=== PATIENT | male | born 1980 | race Caucasian/White ===

== ENCOUNTER 2025-03-10 19:33 | Emergency (ER) | payer SELFPAY ==
--- NOTE | ~2025-03-10 | XR_ITS ---
XR chest 1V portable Ordering provider: Colt Prince PA-C History: 44 years Male with . cough . Comparison: None. FINDINGS: MEDIASTINUM: The cardiac silhouette is not enlarged. Slightly prominent yisel. LUNGS: No infiltrates, effusions or pneumothorax. OTHER: No free air under the diaphragm. IMPRESSION: No acute cardiopulmonary pathology. Reviewed, dictated and finalized at location A.
[2025-03-10 20:04] VITALS: BP 138/77; PULSE 89; RESP 15; TEMP 36.9; O2SAT 99
--- NOTE | 2025-03-10 21:02 | ED_ITS ---
HPI - URI/Sore Throat General Chief Complaint: Upper Respiratory Infection Stated Complaint: sore throat, cough, fever Time Seen by Provider: 03/10/25 21:01 Source: patient Mode of arrival: ambulatory Limitations: no limitations History of Present Illness HPI Narrative: This is a 44-year-old male who presents to the ED for chief complaint of upper respiratory infection symptoms for the past 5 days. Patient reports symptoms of sore throat, progressing to a cough with chills. Also endorses congestion, headaches and chest soreness with cough. Patient states that he has concern for possible pneumonia due to his coughing fits. Related Data Allergies Allergy/AdvReac Type Severity Reaction Status Date / Time Penicillins Allergy Abdominal Verified 03/10/25 19:36 Pain tramadol Allergy GI upset Verified 03/10/25 19:36 Review of Systems Review of Systems: All systems as dictated in HPI Exam Narrative: GENERAL: Well-appearing, well-nourished, and in no acute distress. HEAD: Normocephalic, atraumatic. EYES: PERRLA and EOMI. ENT: Nares clear, no rhinorrhea or epistaxis. Mucous membranes moist. Oropharynx without tonsillar hypertrophy exudate or other lesions. NECK: Supple. No adenopathy or masses. CHEST: No respiratory distress. Clear to auscultation. No wheezes rales or rhonchi HEART: Regular rate and rhythm. No murmur heard. Normal peripheral pulses. ABDOMEN: Soft, nontender, nondistended, normal active bowel sounds. MSK: Normal range of motion. No edema. SKIN: Warm, dry, no rash. NEURO: Alert and oriented x4. No focal deficits. PSYCH: Normal mood and affect. Course Vital Signs Vital signs: Vital Signs Temperature 98.5 F 03/10/25 20:04 Pulse Rate 89 03/10/25 20:04 Respiratory Rate 15 03/10/25 20:04 Blood Pressure 138/77 03/10/25 20:04 Pulse Oximetry 99 03/10/25 20:04 Oxygen Delivery Room Air 03/10/25 20:04 Temperature 97.9 F 03/10/25 22:22 Pulse Rate 92 03/10/25 22:22 Respiratory Rate 20 03/10/25 22:22 Blood Pressure 147/98 H 03/10/25 22:22 Pulse Oximetry 97 03/10/25 22:22 Oxygen Delivery Room Air 03/10/25 21:20 MDM - URI/Sore Throat MDM Narrative Medical decision making narrative: This is a 44-year-old male who presents to the ED for chief complaint of cough and chest tightness. Vitals are normal. Exam is benign overall. Viral swabs are negative. Chest x-ray negative. Presentation consistent with bronchitis. Rx for Medrol Dosepak and Tessalon Perles given. Patient will be discharged in stable condition. Supportive measures discussed and return precautions given. Patient is understanding and agreeable with plan for discharge with PCP follow-up. Lab Data Labs: Lab Results 03/10/25 Range/Units 21:19 Influenza A (RT-PCR) Negative (Negative) Influenza B (RT-PCR) Negative (Negative) RSV (RT-PCR) Negative (Negative) SARS-CoV-2 RNA (RT-PCR) Negative (Negative) Discharge Plan Discharge Clinical Impression: Upper respiratory infection, Bronchitis Patient Disposition: Home Condition: Stable Instructions: Antibiotic Form, Acute Bronchitis (ED) Additional Instructions: Exam and imaging today are reassuring. This is most likely bronchitis and should self resolve over the next couple of weeks. Use steroids as prescribed as well as cough medicine. Follow-up with PCP on this issue. If you have any new or worsening symptoms please return to the ER for further evaluation. Patient Language: Mohawk Prescriptions: New methylprednisolone [Medrol (Lenin)] 4 mg tablets,dose pack 4 mg PO DAILY Qty: 21 0RF benzonatate 100 mg capsule 100 mg PO BID PRN (Reason: cough) Qty: 30 0RF Follow-up/Referrals: PHYSICIAN,INSURANCE MANAGER [Primary Care Provider] - Time of Disposition: 22:03
--- OUTSIDE RECORDS SUMMARY | 2025-03-10 21:19 | XMS_ITS | Clinical Summary ---
Author Organization [facility] Address [address] [place] [address] Phone Care Team Providers Care Collar Turner Name Role Phone Unavailable Primary Care Provider Unavailabl e Allergies Active Allergy Reactions Criticality Noted Date Comments Penicillins Nausea and Vomiting,Dizziness Low 08/07 Tramadol Headache Low 03/27/2023 Medications metFORMIN (GLUCOPHAGE) 500 mg tabletIndicatio ns:Type 2 diabetes mellitus with hyperglycemia, without long-term current use of insulin ([facility]) Take 2 Tablets (1,000 mg) by mouth 2 times daily with meals. 360 Tablet 1 4 Active hydrocortisone (HYTONE) 2.5 % LotionIndicatio ns:application site rash Apply to affected area 2 times daily. 236 mL 2 02/16/2024 4:14 PM CDT 4 Active triamcinolone acetonide (KENALOG) 0.1 % Cream Apply to affected area 2 times daily. 160 Gram 4 Active dextromethorpha n-guaiFENesin (ROBITUSSIN DM) 10-100 mg/5 mL solution Take 10 mL by mouth every 4 hours as needed for Congestion or Cough. 118 mL 4 Active albuterol sulfate HFA 90 mcg/actuation aerosol inhaler Take 2 Puffs by inhalation every 6 hours as needed for Wheezing or Shortness of Breath. 8.5 Gram 4 Active Active Problems Problem Noted Date Diagnosed Date Prurigo nodularis 01/30/2024 HLA-B27 associated acute anterior uveitis 2023 HTN (hypertension), benign 08/12/2022 Type 2 diabetes mellitus wit h periodontal disease, without long-term current use of insulin 08/11/2022 Allergic rhinitis 05/21/2014 GERD (gastroesophageal reflux disease) 2 Resolved Problems Problem Noted Date Diagnosed Date Resolved Date Cellulitis 01/27/2024 01/31/2024 Lactic acidosis 01/27/2024 01/30/2024 Hyponatremia 01/27/2024 01/30/2024 Periapical abscess 08/11/2022 Facial cellulitis 08/11/2022 01/31/2024 2019 novel coronavirus disease (COVID-19) 08/11/2022 01/31/2024 Conjunctivitis 05/21/2014 01/31/2024 Sinusitis 05/21/2014 01/31/2024 Elevated liver function tests 06/21/2012 01/30/2024 Encounters Date Type Department Care Team Description 02/04/2025 External Device Data [facility] ABSTRACTION Provider, Abstract 02/04/2025 External Device Data [facility] Provider, Abstract 01/29/2025 External Device Data [facility] Provider, Abstract 01/28/2025 External Device Data [facility] Provider, Abstract 01/28/2025 External Device Data [facility] Provider, Abstract 01/21/2025 External Device Data [facility] Provider, Abstract 01/17/2025 Telephone [facility] [address] [address] Frandy Jacobo, Appointment Needed 12/24/2024 External Device Data [facility]STRACTION Provider, Abstract 12/19/2024 External Device Data [facility] Provider, Abstract 12/10/2024 External Device Data [facility]STRACTION Provider, Abstract from Last 3 Months Family History Medical History Relation Name Comments No Known Problems Brother 1 No Known Problems Brother 2 Hypertension Father Unknown Father Diabetes Mother Hypertension Mother Stroke Mother Unknown Mother Relation Name Status Comments Brother 1 Alive Brother 2 Alive Father Alive Mother Alive Social History Tobacco Use Types Packs/Day Years Used Date Smoking Tobacco: Former Cigarettes 1 3.1 S tarted: 01/26/2022 Cigars Tobacco Cessation:Counseling Given: Not Answered Alcohol Use Standard Drinks/Week Comments Not Currently 0 (1 standard drink = 0.6 oz pure alcohol) quit ETOH 1 yr ago. drank beer & anuradha mercado Financial Resource Strain Answer Date R ecorded How hard is it for you to pa y for the very basics like food, housing, medical care, and heating? Hard 10/29/2023 Food Insecurity Answer Date Recorded In the past 12 months, have you worried that your food would run out before you had money to buy more? Sometimes true 2022 In the past 12 months, did y ou run out of food and didn't have money to buy more? Often true 10/29/2023 Transportation Needs Answer Date Record ed In the past 12 months, has l ack of transportation kept you from medical appointments or from getting medications? Yes 01/2023 In the past 12 months, has l ack of transportation kept you from meetings, work, or from getting things needed for daily living? Yes 10/29/2023 Housing Stability Answer Date Recorded In the last 12 months, was t here a time when you were not able to pay the mortgage or rent on time? Yes 10/29/2023 Number of Times Moved in the Last Year Not on fi le 10/29/2023 Unstable Housing in the Last Year Not on file 10/29/2023 Feeling Safe Answer Date Recorded Are you in a relationship wi th someone who hurts you emotionally and/or physically? No 07/14/2024 Food Insecurity Answer Date Recorded Social/Environmental Concerns No concerns Transportation Needs Answer Date Record ed Social/Environmental Concerns No concerns Housing Stability Answer Date Recorded Social/Environmental Concerns No concerns Utility Needs Answer Date Recorded Social/Environmental Concerns No concerns Sex and Gender Information Value Date Recorded Sex Assigned at Not on file Legal Sex Male 6:08 AM INTERLACER Gender Identity Not on file Sexual Orientation Not on file Occupation Industry Job Start Date Job End Date Not on file Not on file Not on file Not on file Last Filed Vital Signs Vital Sign Reading Time Taken Comments Blood Pressure 133/71 08/18/2024 1:33 PM CDT Pulse 77 08/18/2024 1:33 PM CDT Temperature 36 C (96.8 F) 08/18/2024 11:31 AM CDT Respiratory Rate 16 08/18/2024 1:33 PM CDT Oxygen Saturation 99% 08/18/2024 1:33 PM CDT Inhaled Oxygen Concentration - - Weight 93.9 kg (207 lb) 08/18/2024 11:31 AM CDT Height 180.3 cm (5' 11 ) 08/18/2024 11:31 AM CDT Body Mass Index 28.87 08/18/2024 11:31 AM CDT Plan of Treatment Health Maintenance Due Date Last Done Comments DIABETES ANNUAL FOOT EXAM 2000 DIABETES MICROALBUMIN ANNUAL SCREEN 2000 LDL CHOLESTEROL ANNUAL 2000 DTAP/TDAP/TD VACCINES (1 - Tdap) 2001 HEPATITIS B VACCINES (1 of 3 - 19+ 3-dose series) 2001 Preventative Visit-Managed Medicaid 2001 DIABETES: A1C (Auto Order) 04/28/202401/26, 09/13/2023, 10/21/2022 INFLUENZA VACCINE (#1) 2024 DIABETES HBA1C Q 6 MONTHS 07/29/20242023, 09/13/2023, 10/21/2022 DIABETES ANNUAL RETINAL EXAM 02/14/2025, 08/09/2023, 04/20/2023 HPV VACCINES Aged Out No longer eligi ble based on patient's age to complete this topic Procedures Procedure Name Priority Date/Time Associated Diagnosis Comments HEMOGLOBIN A1C Stat 01/27/2024 11:09 AM INTERLACER from Last 3 Months or Most Recently Relevant to Health Maintenance Results * (ABNORMAL) HEMOGLOBIN A1C (01/27/2024 11:09 AM INTERLACER) HEMOGLOBIN A1C 10.4(H) <=5.6 % 01/27/2024 11:53 AM [facility] [employer] [facility] EST. AVG GLUCOSE, A1C 252 mg/dL 01/27/2024 11:53 AM [facility] Blood Collection / Unknown 01/27/2024 11:09 AM INTERLACER 01/27/2024 11:34 AM INTERLACER Narrative [facility] - 01/27/2024 11:53 AM INTERLACER HGB A1C INTERPRETATION NORMAL: <5.7% PRE-DIABETES: 5.7 - 6.4% DIABETES: 6.5% OR GREATER [facility] CHEMISTRY ORDERABLES Final Resul t [facility] CLIA # [id number] [address] [place] [id number] from Last 3 Months or Most Recently Relevant to Health Maintenance Insurance [employer] (INTERNAL) [employer] COVID NO INSURANCE (INTERNAL) Member Subscriber Plan / Payer (Ef fective for All Dates) Name:Bassam Parker Member ID:Not on file Relation to Subscriber:Self Name:Bassam Parker Subscriber ID:Not on file Payer ID:Not on file Group ID:Not on file Type:RX [facility] [employer] Address: [address] [facility] MEDICAID Advance Directives For more information, please contact: [phone] * Full Code (Latest Code Status on File) Date Activated Date Inactivated Comments 01/27/2024 2:32 PM 01/30/2024 2:19 PM * Full Code Date Activated Date Inactivated Comments 08/11/2022 4:26 PM 08/13/2022 9:06 PM
--- OUTSIDE RECORDS SUMMARY | 2025-03-10 21:19 | XMS_ITS | Encounter Summary ---
Author Organization [facility] Address [address] [facility] [place] [address] Care Team Providers Care Hose Inspector And Patcher Name Role Phone Unavailable Primary Care Provider Unavailabl e Reason for Visit * Reason Onset Date Comments MEDICATION REFILL 11/02/2023 Eye Problem 11/02/2023 Encounter Details Date Type Department Care Team (Late st Contact Info) Description 11/02/2023 Refill [facility] - Ophthalmology [address] [place] [phone] Grayson Wadsworth MD [address] [place] [address] [place] [address] MEDICATION REFILL; Eye Problem Social History Tobacco Use Types Packs/Day Years Used Date Smoking Tobacco: Former Smokeless Tobacco: Never Alcohol Use Standard Drinks/Week Comments No 0 (1 standard drink = 0.6 oz pur e alcohol) AUDIT-C Answer Date Recorded Q1: How often do you have a drink containing alc ohol? Never 10/29/2022 Average Number of Drinks Not on file 022 Q3: How often do you have si x or more drinks on one occasion? Never 10/29/2022 Sex and Gender Information Value Date Recorded Sex Assigned at Male 10/29/2022 9:20 AM MANAGER UNIT Legal Sex Male 5:32 AM MANAGER UNIT Gender Identity Male 10/29/2022 9:20 AM MANAGER UNIT Sexual Orientation Not on file documented as of this encounter Miscellaneous Notes * Telephone Encounter - Darshana Cowan - 11/02/2023 11:44 AM CST This patient called and said he had the pink top drops and needed the other one. He said it is for his pressure.(?) GER UNIT documented in this encounter Plan of Treatment Not on file documented as of this encounter Visit Diagnoses Diagnosis Panuveitis of right eye Panuveitis documented in this encounter
--- OUTSIDE RECORDS SUMMARY | 2025-03-10 21:19 | XMS_ITS | Encounter Summary ---
Author Organization [facility] Address [address] [facility] [place] [address] Care Team Providers Care Prepress Stripper Name Role Phone Miladis Eubanks MD Primary Care Provider Encounter Details Date Type Department Care Team (Late st Contact Info) Description 10/29/2022 Ophth Exam [facility] [address] [place] [phone] Jocelyn Parker MD [address] [place] [phone] Social History Tobacco Use Types Packs/Day Years [...] Sex Assigned at Male 10/29/2022 9:20 AM PORTABLE MACHINE CUTTER Legal Sex Male 5:32 AM PORTABLE MACHINE CUTTER Gender Identity Male 10/29/2022 9:20 AM PORTABLE MACHINE CUTTER Sexual Orientation Not on file documented as of this encounter Functional Status documented as of this encounter Plan of Treatment Not on file documented as of this encounter Visit Diagnoses Not on filedocumented in this encounter Care Teams Prepress Stripper Relationship Specialty Start Date End Date Miladis Eubanks MD [address] [facility] [place] [address] PCP - General 11/01/22 11/01/22 documented as of this encounter
--- OUTSIDE RECORDS SUMMARY | 2025-03-10 21:19 | XMS_ITS | Clinical Summary ---
Author Organization [facility] Address [address] [place] [address] Care Team Providers Care Diamond Sorter Name Role Phone Unavailable Primary Care Provider Unavailabl e Source Comments [facility],non-owned Affiliates and Associated Physician Practices is amultiple site organization consisting of ambulatory clinics and hospital sitesin [place], [place] and [place]. This disclosure is being madepursuant to the Care Everywhere program and may not contain all information available regarding this patient. Last updated 18.[facility] [place] Allergies Active Allergy Reactions Criticality Noted Date Comments Penicillins Dizziness 02/06/2019 Tramadol Headache Low 03/27/2023 Medications * Be aware that medications may not be up to date on this document. Alwaysverify current medications with the patient. metFORMIN (Glucophage) 500 MG tablet 10/28/2023 Activ e prednisoLONE acetate (Pred Forte) 1 % ophthalmic suspension Instill 1 (one) drop into right eye 4 times daily 4 times a day for 1 week then 3 times a day for 1 week then 2 times a day for 1 week then once a day for 1 week then every other day for 1 week 15 mL 2 11/06/2023 Active clindamycin (Cleocin) 300 MG capsule TAKE 1 CAPSULE BY MOUTH EVERY 6 HOURS UNTIL ALL TAKEN 11/16/2023 Active hydrocortisone (Hytone) 2.5 % lotion Apply to affected area 2 times daily 02/14/2024 Active hydrOXYzine HCl (Atarax) 25 MG tablet 12/13/2023 Active ibuprofen (Motrin) 800 MG tablet TAKE 1 TABLET BY MOUTH EVERY 6-8 HOURS NEEDED 11/16/2023 Active metFORMIN (Glucophage) 500 MG tablet Take 2 (two) tablets by mouth 01/31/2024 Active sulfamethoxazol e-trimethoprim (Bactrim DS; Septra DS) 800-160 MG tablet Take 1 (one) tablet by mouth 2 times daily FOR 10 DAYS 12/13/2023 Active Active Problems Problem Noted Date Diagnosed Date Elevated BP without diagnosis of hypertension Type 2 diabetes mellitus wit h periodontal disease, without long-term current use of insulin 08/11/2022 Periapical abscess 08/11/2022 Facial cellulitis 08/11/2022 2019 novel coronavirus disease (COVID-19) 2021 Allergic rhinitis 05/21/2014 Increased glucose level 06/21/2012 GERD (gastroesophageal reflux disease) 2 Elevated liver function tests 06/21/2012 Resolved Problems Problem Noted Date Diagnosed Date Resolved Date Sinusitis 05/21/2014 12/27/2022 Conjunctivitis 05/21/2014 12/13/2022 Social History Tobacco Use Types Packs/Day Years [...] Sex Assigned at Male 10/29/2022 9:20 AM ANALYZER SALES Legal Sex Male 5:32 AM ANALYZER SALES Gender Identity Male 10/29/2022 9:20 AM ANALYZER SALES Sexual Orientation Not on file Last Filed Vital Signs Vital Sign Reading Time Taken Comments Blood Pressure 140/96 10/29/2022 8:38 AM ANALYZER SALES Pulse 78 10/29/2022 8:38 AM ANALYZER SALES Temperature 36.2 C (97.1 F) 10/29/2022 8:38 AM ANALYZER SALES Respiratory Rate 16 10/29/2022 8:38 AM ANALYZER SALES Oxygen Saturation 97% 10/29/2022 8:38 AM ANALYZER SALES Inhaled Oxygen Concentration - - Weight 94.3 kg (208 lb) 10/29/2022 8:38 AM ANALYZER SALES Height 180.3 cm (5' 11 ) 10/29/2022 8:38 AM ANALYZER SALES Body Mass Index 29.01 10/29/2022 8:38 AM ANALYZER SALES Plan of Treatment Health Maintenance Due Date Last Done Comments HEPATITIS C SCREENING 03/08/2000 DTAP/TDAP/TD VACCINES (1 - Tdap) 2001 HEPATITIS B VACCINE (1 of 3 - 19+ 3-dose series) 2001 PNEUMOCOCCAL VACCINE (1 of 2 - PCV) 2001 DIABETES-STATIN 2022 DIABETES-FOOT EXAM WITH MONOFILAMENT 11/29/2022 COVID-19 VACCINE (1 - 2023- season) 2024 DIABETES-HGB A1C 07/29/2024 01/27/2024, , 10/21/2022 DEPRESSION SCREENING 11/27/2024 DIABETES - URINE PROTEIN SCREENING 11/27/2024 DIABETES-SERUM CREATININE 01/29/20252023, 01/30/2024, 01/30/2024, Additional history exists INFLUENZA VACCINE (Season Ended) 2025 DIABETES RETINOPATHY SCREENING 02/14/2026 02/15/2024, 11/06/2023, 08/09/2023, Additional history exists ZOSTER VACCINE (1 of 2) 2032 HIV SCREENING Completed 02/18/2019 HIB VACCINE Aged Out No longer eligi ble based on patient's age to complete this topic HPV VACCINE Aged Out No longer eligi ble based on patient's age to complete this topic MENINGOCOCCAL (Group B) VACCINE SHARED DECISION-MAKING Aged Out No longer eligible based on patient's age to complete this topic MENINGOCOCCAL GROUPS A/C/Y/W VACCINE Aged Out No longer eligible based on patient's age to complete this topic Procedures Procedure Name Priority Date/Time Associated Diagnosis Comments COMPREHENSIVE METABOLIC PANEL STAT 10/28/2022 7:00 PM ANALYZER SALES HIV-1 HIV-2 ANTIGEN/ANTIBODY STAT 02/18/2019 10:30 PM CDT from Last 3 Months or Most Recently Relevant to Health Maintenance Results * (ABNORMAL) COMPREHENSIVE METABOLIC PANEL (10/28/2022 7:00 PM ANALYZER SALES) Glucose 224(H) 70 - 105 mg/dL 10/28/2022 7:25 PM [facility] Sodium 138 136 - 145 mmol/L 10/28/2022 7:25 PM [facility] Potassium 3.2(L) 3.5 - 5.1 mmol/L 10/28/2022 7:25 PM [facility] Chloride 104 98 - 107 mmol/L 10/28/2022 7:25 PM [facility] CO2 22(L) 23 - 31 mmol/L 10/28/2022 7:25 PM [facility] Calcium 9.0 8.4 - 10.4 mg/dL 10/28/2022 7:25 PM [facility] Anion Gap 12 8 - 18 mmol/L 10/28/2022 7:25 PM [facility] BUN 14 8.9 - 20.6 mg/dL 10/28/2022 7:25 PM [facility] Creatinine 0.82 0.72 - 1.25 mg/dL 10/28/2022 7:25 PM [facility] Alkaline Phosphatase 106 40 - 150 U/L 10/28/2022 7:25 PM [facility] ALT 25 0 - 61 U/L 10/28/2022 7:25 PM [facility] AST 20 5 - 34 U/L 10/28/2022 7:25 PM [facility] Protein Total 7.3 6.4 - 8.3 gm/dL 10/28/2022 7:25 PM [facility] Albumin 4.0 3.5 - 5.2 gm/dL 10/28/2022 7:25 PM [facility] Bilirubin Total 0.6 0.2 - 1.2 mg/dL 10/28/2022 7:25 PM [facility] eGFR by CKD-EPI >90 >=90 mL/min/1.7 3 m2 10/28/2022 7:25 PM [facility] Blood BLOOD SPECIMEN / Unknown Venipuncture / Unknown 10/28/2022 7:00 PM ANALYZER SALES 10/28/2022 7:05 PM [facility] us Dami Enamorado RING MAKER-SWEATER OPERATOR LAB - CHEMISTRY ORDERABL ES Final Result [facility] [address] [id number] * HIV-1 HIV-2 ANTIGEN/ANTIBODY (02/18/2019 10:30 PM CDT) HIV Antigen/Antibod y 1 & 2 Non-reacti ve Non-react nasra 02/18/2019 11:23 PM CDT [facility] Comment: Neither HIV-1 p24 Antigen nor HIV-1/HIV-2 Antibodies are detected. Blood BLOOD SPECIMEN / Unknown Venipuncture / Unknown 02/18/2019 10:30 PM CDT 02/18/2019 10:41 PM CDT us Kyle Mckay MD LAB - HEMATOLOGY ORDERABLES Henrietta gonzales Result [facility] [address] [place] [address] from Last 3 Months or Most Recently Relevant to Health Maintenance Insurance [employer] Address: [address] [address] [place] [address] [facility] [employer] Address: [address] [place] [address] [place] [address]
--- OUTSIDE RECORDS SUMMARY | 2025-03-10 21:19 | XMS_ITS | Continuity of Care Document ---
Author Organization [facility] Address [address] [place] [address] Phone Care Team Providers Care Mail Service Coordinator Name Role Phone Raysa Graham MD Unavailable Unavailable Allergies, Adverse Reactions, Alerts Substance Reaction Status Criticality aspirin dizziness Active No Information PENICILLIN upset stomach Active No Information Medications Medication Instructions Dosage Effective Dates (start - stop) Status Comments Janumet 50 mg-500 mg tablet take 1 tablet by oral route 2 times every day with meals 1.00 tablet - Active citalopram 20 mg tablet take 1 tablet by oral route every day 20 MG - Active FOR MOOD buspirone 10 mg tablet take 1 tablet (10MG) by oral route 2 times every day as needed for anxiety - Active omeprazole 40 mg capsule,delayed release take 1 capsule by oral route every day before a meal 40 MG - Active cyclobenzaprine 10 mg tablet take 1 tablet by oral route 2 times every day NEEDED FOR BACK PAIN - Active Lantus Solostar 100 unit/mL (3 mL) Sub-Q Insulin Pen inject 10 units by subcutaneous route once daily - Active FOR BLOOD SUGAR Lancets,Thin check blood sugar 4 times daily - Active needle (disp) inject lantus solostar daily - Active PLEASE GIVE APPROPRIATE NEEDLE FOR LANTUS SOLOSTAR- any brand/style is fine Lamisil 1 % Topical Cream apply by topical route twice daily to affected areas - Active Lidoderm 5 % (700 mg/patch) Adhesive Patch apply 3 patches by transdermal route every day (May wear up to 12hours.) - Active triamcinolone acetonide 0.1 % Topical Ointment apply by topical route 2 times every day a thin layer to the affected area(s) 0.00 - Active 1-lb jar Procedures Procedure Date OFFICE/OUTPATIENT VISIT, EST Immun admin-adult or WO counseling - fir st vaccine/toxoid HEPATITIS A VACCINE, ADULT DOSAGE, FOR I NTRAMUSCULAR USE Hepatitis B vaccine, adolescent, (2 dose schedule), for intramuscular use Pneumococcal polysaccharide vaccine, 23- valent (Pneumo-Vax 23) to age 2+ COLLECTION OF VENOUS BLOOD BY VENIPUNCTU RE OFFICE/OUTPATIENT VISIT, NEW Extraction erupted tooth or exposed root Periapical first film Limit oral eval problem focused 013 Advance Directives Directive Yes / No Effective Date File Name No Information Encounters Encounter Description Practice Location Reason(s) For Visit Diagnoses Date Provider Providers Copied on Encounter [facility], [address], [place], [place], [address] [place] [address] , tel: [phone] [facility] No Information Santos Tabares. [address] [place] [address], [address] [place] [address], . tel:[phone] Referring Provider: Raysa Graham, [address], [place], [address] . tel:[phone] OFFICE/OUTPA TIENT VISIT, EST [facility], [address], [place], [place], [address] , tel:[phone] Urgent Care hepA (chief complaint) Encounter for immunization Lambert Torres. [address], [place], [place], [address], . tel:[phone] Referring Provider: Brian Verdin, [address], [place], [address] . tel:[phone] [facility], [address], [place], [place], [address] , [place] tel: [phone] [facility] No Information 3 No Information OFFICE/OUTPA TIENT VISIT, NEW [facility], [address], [place], [place], [address] , [place] tel: [phone] [facility] diabetes (chief complaint) GERD (chief complaint) back pain (chief complaint) anxiety (chief complaint) AnxietyDM (diabetes mellitus)Back painGERD (gastroesophageal reflux disease)Need for prophylactic vaccination and inoculation against viralhepatitisNeed for prophylactic vaccination and inoculation against Streptococcus pneumoniae [pneumococcus] 3 No Information [facility], [address], [place], [place], [id number] , [place] tel: [phone] [facility] Dental examination 3 No Information Family History Family Member Type Diagnosis Age At Onset No Information Immunizations Vaccine Date Status Comments Hep A (adult) administered Source: New Im munization Record Pneumo (2 yrs or older)(PPV) administered Source: New Immunization Record Hep B (adult, 2 dose) administered Source : New Immunization Record Payers Payer name Insurance type Covered green party ID Authoriza tion(s) No Information Social History Type Description Quantity Date Captured Comments Sex Male Smoking Status No Information Chief Complaint And Reason For Visit No Information Reason For Referral Reason For Referral No Information Plan Of Treatment Date Type Action Status Goal BMP fasting. Due on 013 due Goal Urinalysis. 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 Functional Status Date Functional Assessmen t No Information Instructions Date Instruction Additional Infor mation No Information Assessments Type Assessment Date No Information Patient Care Teams Name Effective Dates (start - stop) Status Members No Information
--- OUTSIDE RECORDS SUMMARY | 2025-03-10 21:19 | XMS_ITS | Encounter Summary ---
Author Organization [facility] Address [address] [place] [address] Care Team Providers Care Student Affairs Dean Name Role Phone Frandy Jacobo Primary Care Provider + Reason for Visit * Reason Onset Date Comments FACIAL CELLULITIS, PERIAPICAL ABSCESS 08/12/2022 LEFT RN # ON DR [facility]S PAGER Encounter Details Date Type Department Care Team (Late st Contact Info) Description 08/12/2022 Telephone [facility] Admitting [address] [place] [address] [place] [address] [facility] [address] [place] [address] FACIAL CELLULITIS, PERIAPICAL ABSCESS (LEFT RN # ON DR PERRY'S PAGER) Social History Tobacco Use Types Packs/Day Years Used Date Smoking Tobacco: Former Alcohol Use Standard Drinks/Week Comments Yes 0 (1 standard drink = 0.6 oz pur e alcohol) rare Sex and Gender Information Value Date Recorded Sex Assigned at Not on file Legal Sex Male 6:08 AM INSIDE SALES LEAD Gender Identity Not on file Sexual Orientation Not on file Occupation Industry Job Start Date Job End Date Not on file Not on file Not on file Not on file COVID-19 Exposure Response Date Recorded In the last 10 days, have yo u been in contact with someone who was confirmed or suspected to have Coronavirus/COVID-19? No / Unsure 08/11/2022 5:52 AM CDT documented as of this encounter Plan of Treatment Not on file documented as of this encounter Visit Diagnoses Not on filedocumented in this encounter Additional Health Concerns Infection Onset Date Last Indicated Resolved Time COVID-19 08/07/2022 08/07/2022 08/27/2022 1:17 AM CDT R/O COVID-19 10/21/2022 10/21/2022 10/21/2022 11:5 2 AM INSIDE SALES LEAD R/O COVID-19 09/13/2023 09/13/2023 09/13/2023 3:58 PM CDT R/O Respiratory 09/13/2023 09/13/2023 09/13/2023 1 0:14 PM CDT R/O COVID-19 07/14/2024 07/14/2024 07/14/2024 3:5 9 PM CDT documented as of this encounter Care Teams Student Affairs Dean Relationship Specialty Start Date End Date Frandy Jacobo DO [address] [place] [phone] PCP - General Family Practice 01/31/24 01/21/25 documented as of this encounter
[2025-03-10 22:01] LABS: Influenza A QL RT-PCR Negative (Negative); Influenza B QL RT-PCR Negative (Negative); RSV RNA, RT-PCR Negative (Negative); SARS-CoV-2 RNA PCR Negative (Negative)
[2025-03-10 22:22] VITALS: BP 147/98; PULSE 92; RESP 20; TEMP 36.6; O2SAT 97
== END 2025-03-10 22:23 | disposition home or self-care (01) ==
PROVIDERS: Emergency Provider Physician Assistant
DX: J40 Bronchitis, not specified as acute or chronic (principal); J06.9 Acute upper respiratory infection, unspecified; Z20.822 Contact with and (suspected) exposure to COVID-19
CPT/HCPCS: 71045; 87637; 99283

== ENCOUNTER 2025-03-21 12:46 | Emergency (ER) | payer SELFPAY ==
[2025-03-21 12:48] VITALS: BP 122/84; PULSE 115; RESP 20; TEMP 36.4; O2SAT 99
--- OUTSIDE RECORDS SUMMARY | 2025-03-21 12:52 | XMS_ITS | Encounter Summary ---
Author Organization [facility] Address [address] [place] [address] Care Team Providers Care Chemical Preparer Name Role Phone Donnell Frandy Winkler Primary Care Provider + Reason for Visit * Reason Onset Date Comments FACIAL CELLULITIS, PERIAPICAL ABSCESS 08/12/2022 LEFT RN # ON DR PERRY'[facility] PAGER Encounter Details Date Type Department Care Team (Late st Contact Info) Description 08/12/2022 Telephone [facility] Admitting [address] [place] [address] [place] [address] [address] FACIAL CELLULITIS, PERIAPICAL ABSCESS (LEFT RN # ON DR PERRY'S PAGER) Social History Tobacco Use Types Packs/Day Years Used Date Smoking Tobacco: Former Alcohol Use Standard Drinks/Week Comments Yes 0 (1 standard drink = 0.6 oz pur e alcohol) rare Sex and Gender Information Value Date Recorded Sex Assigned at Not on file Legal Sex Male 6:08 AM BROADBAND ENGINEER Gender Identity Not on file Sexual Orientation [...] COVID-19 10/21/2022 10/21/2022 10/21/2022 11:5 2 AM BROADBAND ENGINEER R/O COVID-19 09/13/2023 09/13/2023 09/13/2023 3:58 PM CDT R/O Respiratory 09/13/2023 09/13/2023 09/13/2023 1 0:14 PM CDT R/O COVID-19 07/14/2024 07/14/2024 07/14/2024 3:59 PM CDT documented as of this encounter Care Teams Chemical Preparer Relationship Specialty Start Date End Date Frandy Jacobo DO [address] [place] [phone] PCP - General Family Practice 01/31/24 01/21/25 documented as of this encounter
--- OUTSIDE RECORDS SUMMARY | 2025-03-21 12:52 | XMS_ITS | Encounter Summary ---
Author Organization [facility] Address [address] [facility] [place] [address] Care Team Providers Care Pillar Worker Name Role Phone Unavailable Primary Care Provider Unavailabl e Reason for Visit * Reason Onset Date Comments MEDICATION REFILL 11/02/2023 Eye Problem 11/02/2023 Encounter Details Date Type Department Care Team (Late st Contact Info) Description 11/02/2023 Refill [facility] - Ophthalmology [address] [place] [phone] Grayson Wadsworth MD [address] [place] [address] [place] [address] MEDICATION REFILL; Eye Problem Social [...] Sex Assigned at Male 10/29/2022 9:20 AM PILATES COORDINATOR Legal Sex Male 5:32 AM PILATES COORDINATOR Gender Identity Male 10/29/2022 9:20 AM PILATES COORDINATOR Sexual Orientation Not on file documented as of this encounter Miscellaneous Notes * Telephone Encounter - Darshana Cowan - 11/02/2023 11:44 AM CST This patient called and said he had the pink top drops and needed the other one. He said it is for his pressure.(?) TES COORDINATOR documented in this encounter Plan of Treatment Not on file documented as of this encounter Visit Diagnoses Diagnosis Panuveitis of right eye Panuveitis documented in this encounter
--- OUTSIDE RECORDS SUMMARY | 2025-03-21 12:52 | XMS_ITS | Clinical Summary ---
Author Organization [facility] Address [address] [facility] [place] [address] Care Team Providers Care Dough Mixer Operator Name Role Phone Unavailable Primary Care Provider Unavailabl e Source Comments [facility],non-owned Affiliates and Associated Physician Practices is amultiple site organization consisting of ambulatory clinics and hospital sitesin [place], [place], [place] and [place]. This disclosure is being madepursuant to the Care Everywhere program and may not contain all information available regarding this patient. Last updated 18.[facility] Allergies Active Allergy Reactions Criticality Noted Date [...] Sex Assigned at Male 10/29/2022 9:20 AM FACTORY FOCUS TECHNICIAN Legal Sex Male 5:32 AM FACTORY FOCUS TECHNICIAN Gender Identity Male 10/29/2022 9:20 AM FACTORY FOCUS TECHNICIAN Sexual Orientation Not on file Last Filed Vital Signs Vital Sign Reading Time Taken Comments Blood Pressure 140/96 10/29/2022 8:38 AM FACTORY FOCUS TECHNICIAN Pulse 78 10/29/2022 8:38 AM FACTORY FOCUS TECHNICIAN Temperature 36.2 C (97.1 F) 10/29/2022 8:38 AM FACTORY FOCUS TECHNICIAN Respiratory Rate 16 10/29/2022 8:38 AM FACTORY FOCUS TECHNICIAN Oxygen Saturation 97% 10/29/2022 8:38 AM FACTORY FOCUS TECHNICIAN Inhaled Oxygen Concentration - - Weight 94.3 kg (208 lb) 10/29/2022 8:38 AM FACTORY FOCUS TECHNICIAN Height 180.3 cm (5' 11 ) 10/29/2022 8:38 AM FACTORY FOCUS TECHNICIAN Body Mass Index 29.01 10/29/2022 8:38 AM FACTORY FOCUS TECHNICIAN Plan of Treatment Health Maintenance Due Date [...] COMPREHENSIVE METABOLIC PANEL STAT 10/28/2022 7:00 PM FACTORY FOCUS TECHNICIAN HIV-1 HIV-2 ANTIGEN/ANTIBODY STAT 02/18/2019 10:30 PM CDT from Last 3 Months or Most Recently Relevant to Health Maintenance Results * (ABNORMAL) COMPREHENSIVE METABOLIC PANEL (10/28/2022 7:00 PM FACTORY FOCUS TECHNICIAN) Glucose 224(H) 70 - 105 mg/dL 10/28/2022 7:[address] [facility] Sodium 138 136 - 145 mmol/L 10/28/2022 7:[address] [facility] Potassium 3.2(L) 3.5 - 5.1 mmol/L 10/28/2022 7:[address] [facility] Chloride 104 98 - 107 mmol/L 10/28/2022 7:[address] [facility] CO2 22(L) 23 - 31 mmol/L 10/28/2022 7:[address] [facility] Calcium 9.0 8.4 - 10.4 mg/dL 10/28/2022 7:[address] [facility] Anion Gap 12 8 - 18 mmol/L 10/28/2022 7:[address] [facility] BUN 14 8.9 - 20.6 mg/dL 10/28/2022 7:[address] [facility] Creatinine 0.82 0.72 - 1.25 mg/dL 10/28/2022 7:[address] [facility] Alkaline Phosphatase 106 40 - 150 U/L 10/28/2022 7:[address] [facility] ALT 25 0 - 61 U/L 10/28/2022 7:[address] [facility] AST 20 5 - 34 U/L 10/28/2022 7:[address] [facility] Protein Total 7.3 6.4 - 8.3 gm/dL 10/28/2022 7:[address] [facility] Albumin 4.0 3.5 - 5.2 gm/dL 10/28/2022 7:[address] [facility] Bilirubin Total 0.6 0.2 - 1.2 mg/dL 10/28/2022 7:[address] [facility] eGFR by CKD-EPI >90 >=90 mL/min/1.7 3 m2 10/28/2022 7:[address] [facility] Blood BLOOD SPECIMEN / Unknown Venipuncture / Unknown 10/28/2022 7:00 PM FACTORY FOCUS TECHNICIAN 10/28/2022 7:05 PM [facility] us Dami Enamorado AIRDROP SYSTEMS TECHNICIAN-TRAFFIC SIGNAL TECHNICIAN LAB - CHEMISTRY ORDERABL ES Final Result [facility] [address] [address] * HIV-1 HIV-2 ANTIGEN/ANTIBODY (02/18/2019 10:30 PM CDT) HIV Antigen/Antibod y 1 & 2 Non-reacti ve Non-react nasra 02/18/2019 11:23 PM CDT [facility] Comment: Neither HIV-1 p24 Antigen nor HIV-1/HIV-2 Antibodies are detected. Blood BLOOD SPECIMEN / Unknown Venipuncture / Unknown 02/18/2019 10:30 PM CDT 02/18/2019 10:41 PM CDT us Kyle Mckay MD LAB - HEMATOLOGY ORDERABLES Henrietta gonzales Result [facility] [address] [place] [address] from Last 3 Months or Most Recently Relevant to Health Maintenance Insurance [facility] [place] [phone]
--- OUTSIDE RECORDS SUMMARY | 2025-03-21 12:52 | XMS_ITS | Clinical Summary ---
Author Organization [facility] Address [address] [place] [address] Phone Care Team Providers Care Chief Of Vital Statistics Name Role Phone Unavailable Primary Care Provider Unavailabl e Allergies Active Allergy Reactions Criticality Noted Date Comments Penicillins Nausea and Vomiting,Dizziness Low 08/07 Tramadol Headache Low 03/27/2023 Medications metFORMIN (GLUCOPHAGE) 500 mg tabletIndicatio ns:Type 2 diabetes mellitus with hyperglycemia, without long-term current use of insulin ([facility]) Take 2 Tablets (1,000 mg) by mouth [...] Allergic rhinitis 05/21/2014 GERD (gastroesophageal reflux disease) 07/26/201 2 Resolved Problems Problem Noted Date Diagnosed Date Resolved Date Cellulitis 01/27/2024 01/31/2024 Lactic acidosis 01/27/2024 01/30/2024 Hyponatremia 01/27/2024 01/30/2024 Periapical abscess 08/11/2022 Facial cellulitis 08/11/2022 01/31/2024 2019 novel coronavirus disease (COVID-19) 08/11/2022 01/31/2024 Conjunctivitis 05/21/2014 01/31/2024 Sinusitis 05/21/2014 01/31/2024 Elevated liver function tests 06/21/2012 01/30/2024 Encounters Date Type Department Care Team Description 03/18/2025 External Device Data STL ABSTRACTION Provider, Abstract 02/04/2025 External Device Data [facility]L ABSTRACTION Provider, Abstract 02/04/2025 External Device Data [facility] ABSTRACTION Provider, Abstract 01/29/2025 External Device Data [facility] ABSTRACTION Provider, Abstract 01/28/2025 External Device Data [facility] ABSTRACTION Provider, Abstract 01/28/2025 External Device Data [facility] ABSTRACTION Provider, Abstract 01/21/2025 External Device Data [facility] ABSTRACTION Provider, Abstract 01/17/2025 Telephone [facility] Primary Care [address] [address] Frandy Jacobo, Appointment Needed 12/24/2024 [...] on file Legal Sex Male 6:08 AM DESIGN TECHNOLOGY TEACHER Gender Identity Not on file Sexual Orientation [...] of 3 - 19+ 3-dose series) 2001 INFLUENZA VACCINE (#1) 2024 DIABETES HBA1C Q 6 MONTHS 07/29/20242023, 09/13/2023, 10/21/2022 DIABETES ANNUAL RETINAL EXAM 02/14/2025, 08/09/2023, 04/20/2023 HPV VACCINES Aged Out No longer eligi ble based on patient's age to complete this topic Procedures Procedure Name Priority Date/Time Associated Diagnosis Comments HEMOGLOBIN A1C Stat 01/27/2024 11:09 AM DESIGN TECHNOLOGY TEACHER from Last 3 Months or Most Recently Relevant to Health Maintenance Results * (ABNORMAL) HEMOGLOBIN A1C (01/27/2024 11:09 AM DESIGN TECHNOLOGY TEACHER) HEMOGLOBIN A1C 10.4(H) <=5.6 % 01/27/2024 11:53 AM [facility] [place] EST. AVG GLUCOSE, A1C 252 mg/dL 01/27/2024 11:53 AM [facility] [place] Blood Collection / Unknown 01/27/2024 11:09 AM DESIGN TECHNOLOGY TEACHER 01/27/2024 11:34 AM DESIGN TECHNOLOGY TEACHER Narrative [facility] [place] - 01/27/2024 11:53 AM DESIGN TECHNOLOGY TEACHER HGB A1C INTERPRETATION NORMAL: <5.7% PRE-DIABETES: 5.7 - 6.4% DIABETES: 6.5% OR GREATER us Grabiel Azad DO CHEMISTRY ORDERABLES Final Resul t [facility] [place] CLIA # [id number] [facility] [address] [place] [address] from Last 3 Months or Most Recently [...] Type:RX [facility] Address: [address] [facility] MEDICAID Advance Directives For more information, please contact: [phone] * Full Code (Latest Code Status on File) Date Activated Date Inactivated Comments 01/27/2024 2:32 PM 01/30/2024 2:19 PM * Full Code Date Activated Date Inactivated Comments 08/11/2022 4:26 PM 08/13/2022 9:06 PM
--- OUTSIDE RECORDS SUMMARY | 2025-03-21 12:52 | XMS_ITS | Encounter Summary ---
Author Organization [facility] Address [address] [facility] [place] [address] Care Team Providers Care Cottrell Blower Name Role Phone Miladis Eubanks MD Primary Care Provider Encounter Details Date Type Department Care Team (Late st Contact Info) Description 10/29/2022 Ophth Exam [facility] [address] [place] [phone] Jocelyn Parker MD [address] [place] [phone] Social History Tobacco Use Types Packs/Day Years [...] Sex Assigned at Male 10/29/2022 9:20 AM ROUTE DRIVER SALESPERSON Legal Sex Male 5:32 AM ROUTE DRIVER SALESPERSON Gender Identity Male 10/29/2022 9:20 AM ROUTE DRIVER SALESPERSON Sexual Orientation Not on file documented as of this encounter Functional Status documented as of this encounter Plan of Treatment Not on file documented as of this encounter Visit Diagnoses Not on filedocumented in this encounter Care Teams Cottrell Blower Relationship Specialty Start Date End Date Miladis Eubanks MD [address] [place] [facility] [address] PCP - General 11/01/22 11/01/22 documented as of this encounter
--- OUTSIDE RECORDS SUMMARY | 2025-03-21 13:48 | XMS_ITS | Encounter Summary ---
Author Organization [facility] Address [address] [facility] [place] [address] Care Team Providers Care Manager Photography Name Role Phone Miladis Eubanks MD Primary Care Provider [phone] Encounter Details Date Type Department Care Team (Late st Contact Info) Description 10/29/2022 Ophth Exam [facility] [address] [place] [phone] Jocelyn Parker MD [address] [place] [phone] Social History Tobacco Use Types Packs/Day Years [...] Sex Assigned at Male 10/29/2022 9:20 AM WAGON DRILLER Legal Sex Male 5:32 AM WAGON DRILLER Gender Identity Male 10/29/2022 9:20 AM WAGON DRILLER Sexual Orientation Not on file documented as of this encounter Functional Status documented as of this encounter Plan of Treatment Not on file documented as of this encounter Visit Diagnoses Not on filedocumented in this encounter Care Teams Manager Photography Relationship Specialty Start Date End Date Miladis Eubanks MD [address] [place] [facility] [place] [address] PCP - General 11/01/22 11/01/22 documented as of this encounter
--- OUTSIDE RECORDS SUMMARY | 2025-03-21 13:48 | XMS_ITS | Clinical Summary ---
Author Organization [facility] Address [address] [place] [address] Phone Care Team Providers Care Component Assembler Name Role Phone Unavailable Primary Care Provider Unavailabl e Allergies Active Allergy Reactions Criticality Noted Date Comments Penicillins Nausea and Vomiting,Dizziness Low 08/07 Tramadol Headache Low 03/27/2023 Medications metFORMIN (GLUCOPHAGE) 500 mg tabletIndicatio ns:Type 2 diabetes mellitus with hyperglycemia, without long-term current use of insulin ([facility]) Take 2 Tablets (1,000 mg) by [...] Data [facility] ABSTRACTION Provider, Abstract 01/17/2025 Telephone [facility] Primary Care [address] [address] Frandy Jacobo, Appointment Needed [...] on file Legal Sex Male 6:08 AM GRINDER SET UP OPERATOR INTERNAL Gender Identity Not on file Sexual Orientation [...] Comments HEMOGLOBIN A1C Stat 01/27/2024 11:09 AM GRINDER SET UP OPERATOR INTERNAL from Last 3 Months or Most Recently Relevant to Health Maintenance Results * (ABNORMAL) HEMOGLOBIN A1C (01/27/2024 11:09 AM GRINDER SET UP OPERATOR INTERNAL) HEMOGLOBIN A1C 10.4(H) <=5.6 % 01/27/2024 11:53 AM [facility] [place] EST. AVG GLUCOSE, A1C 252 mg/dL 01/27/2024 11:53 AM [facility] [place] Blood Collection / Unknown 01/27/2024 11:09 AM GRINDER SET UP OPERATOR INTERNAL 01/27/2024 11:34 AM GRINDER SET UP OPERATOR INTERNAL Narrative [facility] [place] - 01/27/2024 11:53 AM GRINDER SET UP OPERATOR INTERNAL HGB A1C INTERPRETATION NORMAL: <5.7% PRE-DIABETES: 5.7 - 6.4% DIABETES: 6.5% OR GREATER us Grabiel Azad DO CHEMISTRY ORDERABLES Final Resul t [facility] [place] CLIA # [id number] [facility] [address] [place] [address] from Last 3 Months or [...] Type:RX [facility] Address: [address] [address] [facility] MEDICAID Advance Directives For more information, please contact: [phone] * Full Code (Latest Code Status on File) Date Activated Date Inactivated Comments 01/27/2024 2:32 PM 01/30/2024 2:19 PM * Full Code Date Activated Date Inactivated Comments 08/11/2022 4:26 PM 08/13/2022 9:06 PM
--- OUTSIDE RECORDS SUMMARY | 2025-03-21 13:48 | XMS_ITS | Encounter Summary ---
Author Organization [facility] Address [address] [place] [address] Care Team Providers Care Alignment Specialist Name Role Phone Donnell Frandy Winkler Primary Care Provider + Reason for Visit * Reason Onset Date Comments FACIAL CELLULITIS, PERIAPICAL ABSCESS 08/12/2022 LEFT RN # ON DR PERRY'S PAGER Encounter Details Date Type Department Care Team (Late st Contact Info) Description 08/12/2022 Telephone [facility] Admitting [address] [place] [address] [place] [id number] [address] FACIAL CELLULITIS, PERIAPICAL ABSCESS (LEFT RN # ON DR PERRY'S PAGER) Social History Tobacco Use Types Packs/Day Years Used Date Smoking Tobacco: Former Alcohol Use Standard Drinks/Week Comments Yes 0 (1 standard drink = 0.6 oz pur e alcohol) rare Sex and Gender Information Value Date Recorded Sex Assigned at Not on file Legal Sex Male 6:08 AM ACCOUNT OFFICER Gender Identity Not on file Sexual Orientation [...] COVID-19 10/21/2022 10/21/2022 10/21/2022 11:5 2 AM ACCOUNT OFFICER R/O COVID-19 09/13/2023 09/13/2023 09/13/2023 3:58 PM CDT R/O Respiratory 09/13/2023 09/13/2023 09/13/2023 1 0:14 PM CDT R/O COVID-19 07/14/2024 07/14/2024 07/14/2024 3:59 PM CDT documented as of this encounter Care Teams Alignment Specialist Relationship Specialty Start Date End Date Frandy Jacobo DO [address] [place] [phone] PCP - General Family Practice 01/31/24 01/21/25 documented as of this encounter
--- OUTSIDE RECORDS SUMMARY | 2025-03-21 13:48 | XMS_ITS | Clinical Summary ---
Author Organization [facility] Address [address] [place] [address] Care Team Providers Care Slag Skimmer Name Role Phone Unavailable Primary Care Provider Unavailabl e Source Comments [facility],non-owned Affiliates and Associated Physician Practices is amultiple site organization consisting of ambulatory clinics and hospital sitesin [place], [place], [place] and [place]. This disclosure is being madepursuant to the Care Everywhere program and may not contain all information available regarding this patient. Last updated 18.[facility] Collibra Allergies Active Allergy Reactions Criticality Noted Date [...] Sex Assigned at Male 10/29/2022 9:20 AM PIPE CHIPPER Legal Sex Male 5:32 AM PIPE CHIPPER Gender Identity Male 10/29/2022 9:20 AM PIPE CHIPPER Sexual Orientation Not on file Last Filed Vital Signs Vital Sign Reading Time Taken Comments Blood Pressure 140/96 10/29/2022 8:38 AM PIPE CHIPPER Pulse 78 10/29/2022 8:38 AM PIPE CHIPPER Temperature 36.2 C (97.1 F) 10/29/2022 8:38 AM PIPE CHIPPER Respiratory Rate 16 10/29/2022 8:38 AM PIPE CHIPPER Oxygen Saturation 97% 10/29/2022 8:38 AM PIPE CHIPPER Inhaled Oxygen Concentration - - Weight 94.3 kg (208 lb) 10/29/2022 8:38 AM PIPE CHIPPER Height 180.3 cm (5' 11 ) 10/29/2022 8:38 AM PIPE CHIPPER Body Mass Index 29.01 10/29/2022 8:38 AM PIPE CHIPPER Plan of Treatment Health Maintenance Due Date [...] COMPREHENSIVE METABOLIC PANEL STAT 10/28/2022 7:00 PM PIPE CHIPPER HIV-1 HIV-2 ANTIGEN/ANTIBODY STAT 02/18/2019 10:30 PM CDT from Last 3 Months or Most Recently Relevant to Health Maintenance Results * (ABNORMAL) COMPREHENSIVE METABOLIC PANEL (10/28/2022 7:00 PM PIPE CHIPPER) Glucose 224(H) 70 - 105 mg/dL 10/28/2022 7:25 PM [facility] Sodium 138 136 - 145 mmol/L 10/28/2022 7:25 PM [facility] Potassium 3.2(L) 3.5 - 5.1 mmol/L 10/28/2022 7:25 PM [facility] Chloride 104 98 - 107 mmol/L 10/28/2022 7:25 PM [facility] CO2 22(L) 23 - 31 mmol/L 10/28/2022 7:25 PM [facility] Calcium 9.0 8.4 - 10.4 mg/dL 10/28/2022 7:25 PM [facility] Anion Gap 12 8 - 18 mmol/L 10/28/2022 7:25 PM [facility] BUN 14 8.9 - 20.6 mg/dL 10/28/2022 7:25 PM [facility] Creatinine 0.82 0.72 - 1.25 mg/dL 10/28/2022 7:25 PM [facility] Alkaline Phosphatase 106 40 - 150 U/L 10/28/2022 7:25 PM [facility] ALT 25 0 - 61 U/L 10/28/2022 7:25 PM [facility] AST 20 5 - 34 U/L 10/28/2022 7:25 PM [facility] Protein Total 7.3 6.4 - 8.3 gm/dL 10/28/2022 7:25 PM [facility] Albumin 4.0 3.5 - 5.2 gm/dL 10/28/2022 7:25 PM [facility] Bilirubin Total 0.6 0.2 - 1.2 mg/dL 10/28/2022 7:25 PM [facility] eGFR by CKD-EPI >90 >=90 mL/min/1.7 3 m2 10/28/2022 7:25 PM [facility] Blood BLOOD SPECIMEN / Unknown Venipuncture / Unknown 10/28/2022 7:00 PM PIPE CHIPPER 10/28/2022 7:[address] [facility] us Dami Enamorado CRYPTOGRAPHIC CENTER SPECIALIST-AUTOMOTIVE SERVICE ADVISOR LAB - CHEMISTRY ORDERABL ES Final Result [facility] [address] [id number] * HIV-1 HIV-2 ANTIGEN/ANTIBODY (02/18/2019 10:30 PM CDT) HIV Antigen/Antibod y 1 & 2 Non-reacti ve Non-react nasra 02/18/2019 11:23 PM CDT [facility] Comment: Neither HIV-1 p24 Antigen nor HIV-1/HIV-2 Antibodies are detected. Blood BLOOD SPECIMEN / Unknown Venipuncture / Unknown 02/18/2019 10:30 PM CDT 02/18/2019 10:41 PM CDT us Kyle Mckay MD LAB - HEMATOLOGY ORDERABLES Henrietta gonzales Result [facility] [address] [place] [address] from Last 3 Months or Most Recently Relevant to Health Maintenance Insurance [facility] [place] [phone]
--- OUTSIDE RECORDS SUMMARY | 2025-03-21 13:48 | XMS_ITS | Encounter Summary ---
Author Organization [facility] Address [address] [place] [address] Care Team Providers Care Prosthetics Assistant Name Role Phone Unavailable Primary Care Provider Unavailabl e Reason for Visit * Reason Onset Date Comments MEDICATION REFILL 11/02/2023 Eye Problem 11/02/2023 Encounter Details Date Type Department Care Team (Late st Contact Info) Description 11/02/2023 Refill [facility] - Ophthalmology [address] [place] [phone] Grayson Wadsworth MD [address] [place] [address] [place] [address] MEDICATION REFILL; Eye Problem Social [...] Sex Assigned at Male 10/29/2022 9:20 AM MEAT GRADER Legal Sex Male 5:32 AM MEAT GRADER Gender Identity Male 10/29/2022 9:20 AM MEAT GRADER Sexual Orientation Not on file documented as of this encounter Miscellaneous Notes * Telephone Encounter - Darshana Cowan - 11/02/2023 11:44 AM CST This patient called and said he had the pink top drops and needed the other one. He said it is for his pressure.(?) GRADER documented in this encounter Plan of Treatment Not on file documented as of this encounter Visit Diagnoses Diagnosis Panuveitis of right eye Panuveitis documented in this encounter
--- NOTE | 2025-03-21 13:57 | ED.GENADULT ---
HPI - General Adult General Chief complaint: Abdominal Pain Stated complaint: abd pain Time Seen by Provider: 03/21/25 13:28 History of Present Illness HPI narrative: 45-year-old male presenting emergency department for evaluation for nausea vomiting and abdominal cramping that is been ongoing since Monday. Patient states he got overheated on Monday and had subsequent nausea and vomiting at nighttime. Patient reports decreased p.o. intake yesterday. Patient attempted to go back to work today and felt extremely lightheaded. Patient does report intermittent cough and low abdominal discomfort. Patient does have known diabetes but has not been taking his metformin. Related Data Allergies Allergy/AdvReac Type Severity Reaction Status Date / Time Penicillins Allergy Abdominal Verified 03/21/25 14:14 Pain tramadol Allergy GI upset Verified 03/21/25 14:14 Review of Systems Review of Systems: All systems reviewed & are unremarkable except as noted in HPI and below Exam Narrative: APPEARANCE: Well appearing, no pain, no distress, well-nourished. HEAD: normocephalic, atraumatic. EYES: PERRLA/EOMI, conjunctivae clear. NOSE: Normal no drainage EARS:TMS clear with good light reflex. THROAT: Pharynx clear, no exudate. NECK: Supple. No adenopathy, no masses. RESPIRATORY: Airway patent, respirations nonlabored. Clear to auscultation bilaterally, no rales, rhonchi, wheezing. CARDIOVASCULAR: Regular rate and rhythm without murmurs rubs or gallops. ABDOMINAL: Soft, nontender, nondistended, normal bowel sounds MUSCULOSKELETAL: Moves all extremities. Strength/ROM intact, No edema, No calf tenderness. NEURO: Alert. Cranial nerves II through XII intact. Grossly intact SKIN: Warm, dry. Normal Color Course Vital Signs Vital signs: Vital Signs Temperature 97.5 F L 03/21/25 12:48 Pulse Rate 115 H 03/21/25 12:48 Respiratory Rate 20 03/21/25 12:48 Blood Pressure 122/84 03/21/25 12:48 Pulse Oximetry 99 03/21/25 12:48 Oxygen Delivery Room Air 03/21/25 12:48 Temperature 97.5 F L 03/21/25 12:48 Pulse Rate 99 03/21/25 16:44 Respiratory Rate 18 03/21/25 16:44 Blood Pressure 125/94 H 03/21/25 16:44 Pulse Oximetry 100 03/21/25 16:44 Oxygen Delivery Room Air 03/21/25 12:48 Medical Decision Making MDM Narrative Medical decision making narrative: 45-year-old male presents emergency department for evaluation for dehydration. Patient is tolerating p.o.. Patient was treated with 2 L of lactated Ringer's. Patient's lactic acid is not elevated. Patient is afebrile with no leukocytosis and hemoglobin of 18. Patient does have a creatinine of 1.84 with an unknown baseline. Patient was hyperglycemic with a blood sugar of 495 on recheck patient's blood sugar was improved to 363. Patient was provided a prescription for metformin. Patient was comfortable the plan for discharge and close follow-up. Differential Diagnosis Differential Diagnosis: Hyperglycemia, dehydration, heat exhaustion, DKA Vital Signs Vital Signs: Vital Signs Temperature 97.5 F L 03/21/25 12:48 Pulse Rate 115 H 03/21/25 12:48 Respiratory Rate 20 03/21/25 12:48 Blood Pressure 122/84 03/21/25 12:48 Pulse Oximetry 99 03/21/25 12:48 Oxygen Delivery Room Air 03/21/25 12:48 Temperature 97.5 F L 03/21/25 12:48 Pulse Rate 99 03/21/25 16:44 Respiratory Rate 18 03/21/25 16:44 Blood Pressure 125/94 H 03/21/25 16:44 Pulse Oximetry 100 03/21/25 16:44 Oxygen Delivery Room Air 03/21/25 12:48 Lab Data Lab results reviewed: Yes I reviewed the patient's lab results. 03/21/25 14:13 03/21/25 14:13 Labs: Lab Results 03/21/25 03/21/25 03/21/25 Range/Units 14:12 14:13 16:00 WBC 9.5 (4.5-10.0) K/mm3 RBC 6.90 H (4.6-6.20) M/mm3 Hgb 18.0 (14.0-18.0) g/dL Hct 54.5 H (42.0-52.0) % MCV 79.0 L (80-100) fl MCH 26.1 (26-34) pg MCHC 33.0 (32-36) g/dl RDW 15.1 H (11.5-14.5) % Plt Count 275 (150-375) k/mm3 MPV 10.6 H (7.4-10.4) fl Immature Gran % (Auto) 0.4 (0-0.5) % Neut % (Auto) 76.8 H (45.5-73.1) % Lymph % (Auto) 15.9 L (18.3-44.2) % [place] % (Auto) 6.3 (2.6-8.5) % Eos % (Auto) 0.2 (0-4.4) % Baso % (Auto) 0.4 (0.2-1.2) % Lymph # (Auto) 1.51 (0.9-3.2) K/mm3 [place] # (Auto) 0.6 (0.1-0.6) K/mm3 Eos # (Auto) 0.0 (0-0.3) K/mm3 Baso # (Auto) 0.0 (0.0-0.1) K/mm3 Abs Immat Gran (auto) 0.04 H (0.00-0.031) K/mm3 Absolute Neuts (auto) 7.3 H (1.3-6.7) K/mm3 Absolute Nucleated RBC 0.000 (0.0-0.012) K/mm3 Nucleated RBC % 0.0 (0.0-0.2) % PT 13.6 (11.1-14.7) Seconds INR 1.0 APTT 29.4 (22.3-36.8) Seconds Sodium 129 L (137-145) mmol/L Potassium 4.3 (3.4-5.0) mmol/L Chloride 89 L (98-107) mmol/L Carbon Dioxide 25 (22-30) mmol/L Anion Gap 15 H (4-12) mmol/L BUN 29 H (9-20) mg/dL Creatinine 1.84 H (0.7-1.3) mg/dL Estim Creat Clear Calc 50 ml/min Estimated GFR 40 L (59 - ) Glucose 495 H (65-110) mg/dL POC Capillary Glucose 363 H (65-105) mg/dl Lactic Acid 1.7 (0.7-2.0) mmol/L Calcium 9.8 (8.4-10.2) mg/dL Total Bilirubin 1.3 (0.2-1.3) mg/dL AST 29 (17-59) U/L ALT 34 (6-50) U/L Alkaline Phosphatase 124 (38-126) U/L Total Protein 10.0 H (6.3-8.2) g/dL Albumin 5.2 H (3.5-5.1) g/dL Lipase 85 (23-300) U/L Urine Color Yellow (Yellow) Urine Appearance Clear (Clear) Urine pH 5.0 (5.0-9.0) Ur Specific [place] 1.033 (1.001-1.035) Urine Protein Negative (Negative) mg/dL Urine Glucose (UA) 3+ H (Negative) mg/dL Urine Ketones Trace H (Negative) mg/dL Ur Blood (Man) Negative (Negative) Urine Nitrate Negative (Negative) Urine Bilirubin Negative (Negative) Urine Urobilinogen 0.2 (<2.0) mg/dL Leukocyte Esterase Rfl Negative (Negative) JOHN/UL Influenza A (RT-PCR) Negative (Negative) Influenza B (RT-PCR) Negative (Negative) RSV (RT-PCR) Negative (Negative) SARS-CoV-2 RNA (RT-PCR) Negative (Negative) Discharge Plan Discharge Clinical Impression: N&V (nausea and vomiting), Acute hyperglycemia Patient Disposition: Home Condition: Stable Instructions: Antibiotic Form, Diabetic Hyperglycemia (ED) Additional Instructions: Follow a diabetic diet. Zofran as needed for nausea control. Metformin as directed. Have close follow-up with a primary care physician. If you have any worsening symptoms please call or return to the emergency department. Metformin is 9 dollars at [facility], 4 dollars at [employer] and [address] Patient Language: Bolivian Prescriptions: New metformin 500 mg tablet 500 mg PO BID 30 Days Qty: 60 0RF ondansetron 4 mg tablet,disintegrating 4 mg PO Q8H PRN (Reason: nausea and vomiting) Qty: 14 0RF No Action methylprednisolone [Medrol (Lenin)] 4 mg tablets,dose pack 4 mg PO DAILY Qty: 21 0RF benzonatate 100 mg capsule 100 mg PO BID PRN (Reason: cough) Qty: 30 0RF Follow-up/Referrals: PHYSICIAN,APPLICATION PACKAGING CONSULTANT [Primary Care Provider] -
[2025-03-21 14:06] VITALS: BP 126/98; PULSE 88; RESP 16; O2SAT 100
[2025-03-21] MEDS: ONDANSETRON INJ 4 MG/2 ML VIAL IV PUSH (14:13)
[2025-03-21] MEDS: LACTATED RINGERS 1,000 ML 999 ML IV CONT ×2 (14:14)
[2025-03-21 14:25] LABS: Add Urine Microscopic? NO; Appearance Urine Clear (Clear); Bilirubin Urine Negative (Negative); Blood Urine Negative (Negative); Color Urine Yellow (Yellow); Glucose Urine UA 3+ mg/dL (Negative); Ketones Urine Trace mg/dL (Negative); Leukocyte Esterase Ur Negative LEU/UL (Negative); Nitrate Urine Negative (Negative); Protein Urine Negative (Negative); Specific Grav Ur 1.033 (1.001-1.035); Urobilinogen Urine 0.2 mg/dL (<2.0)
[2025-03-21 14:27] LABS: Basophils Percent Auto 0.4 % (0.2-1.2); Eosinophils Percent Auto 0.2 % (0-4.4); Hematocrit 54.5 % (42.0-52.0); Immature Granulocyte Absolute 0.04 K/mm3 (0.00-0.031); Immature Granulocyte Percent A 0.4 % (0-0.5); Lymphocytes Absolute Auto 1.51 K/mm3 (0.9-3.2); Lymphocytes Percent Auto 15.9 % (18.3-44.2); Mean Corpuscular Hemoglobin 26.1 pg (26-34); Mean Platelet Volume 10.6 fl (7.4-10.4); Monocytes Absolute Auto 0.6 K/mm3 (0.1-0.6); Monocytes Percent Auto 6.3 % (2.6-8.5); Neutrophils Absolute Auto 7.3 K/mm3 (1.3-6.7); Neutrophils Percent Auto 76.8 % (45.5-73.1); Platelet Count Result 275 k/mm3 (150-375); Red Cell Distribution Width 15.1 % (11.5-14.5); White Blood Count 9.5 K/mm3 (4.5-10.0)
[2025-03-21 14:34] LABS: Alanine Aminotransferase 34 U/L (6-50); Albumin Level 5.2 g/dL (3.5-5.1); Alkaline Phosphatase 124 U/L (38-126); Anion Gap 15 mmol/L (4-12); Aspartate Amino Transferase 29 U/L (17-59); Bilirubin,Total 1.3 mg/dL (0.2-1.3); Blood Urea Nitrogen 29 mg/dL (9-20); Calcium 9.8 mg/dL (8.4-10.2); Carbon Dioxide 25 mmol/L (22-30); Chloride 89 mmol/L (98-107); Estimated CRCL calculation 50 ml/min; Estimated Glomerular Filt Rate 40; Glucose 495 mg/dL (65-110); Lipase 85 U/L (23-300); Potassium 4.3 mmol/L (3.4-5.0); Sodium 129 mmol/L (137-145)
[2025-03-21 14:35] LABS: Lactic Acid Reflex 1.7 mmol/L (0.7-2.0)
[2025-03-21 14:44] LABS: Prothrombin Time 13.6 Seconds (11.1-14.7)
[2025-03-21 14:45] LABS: Partial Thromboplastin Time 29.4 Seconds (22.3-36.8)
[2025-03-21 15:03] LABS: Influenza A QL RT-PCR Negative (Negative); Influenza B QL RT-PCR Negative (Negative); RSV RNA, RT-PCR Negative (Negative); SARS-CoV-2 RNA PCR Negative (Negative)
[2025-03-21 16:42] LABS: Glucose Point of Care 363 mg/dl (65-105)
[2025-03-21 16:44] VITALS: BP 125/94; PULSE 99; RESP 18; O2SAT 100
== END 2025-03-21 16:45 | disposition home or self-care (01) ==
PROVIDERS: Emergency Provider Emergency Medicine
DX: R11.2 Nausea with vomiting, unspecified (principal); R73.9 Hyperglycemia, unspecified; Z20.822 Contact with and (suspected) exposure to COVID-19
CPT/HCPCS: 36415; 80053; 81003; 82948; 83605; 83690; 85025; 85610; 85730; 87637; 96361; 96374; 99284; J2405; J7120

== ENCOUNTER 2025-07-04 15:08 | Emergency (ER) | payer SELFPAY ==
--- OUTSIDE RECORDS SUMMARY | 2025-07-04 15:11 | XMS_ITS | Continuity of Care Document ---
Author Organization [facility] Address [address] [place] [address] Phone Care Team Providers Care Cannery Worker Name Role Phone Raysa Graham MD Unavailable [...] Encounter [facility], [address], [place], [place], [address] [place] [address] , tel: [phone] [facility] No Information Santos Tabares. [address] [place] [address], [address] [place] [address], . tel:[phone] Referring Provider: Raysa Graham, [address], [place], [address] . tel:[phone] OFFICE/OUTPA TIENT VISIT, EST [facility], [address], [place], [place], [id number] , tel:[phone] Urgent Care hepA (chief complaint) Encounter for immunization Lambert Torres. [address], [place], [place], [id number], . tel:[phone] Referring Provider: Brian Verdin, [address], [place], [address] . tel:[phone] [facility], [address], [place], [place], [id number] , [place] tel: [phone] [facility] No Information 3 No Information OFFICE/OUTPA TIENT VISIT, NEW [facility], [address], [place], [place], [id number] , [place] tel: [phone] [facility] [place] diabetes (chief complaint) GERD (chief complaint) back pain (chief complaint) anxiety (chief complaint) AnxietyDM (diabetes mellitus)Back painGERD (gastroesophageal reflux disease)Need for prophylactic vaccination and inoculation against viralhepatitisNeed for prophylactic vaccination and inoculation against Streptococcus pneumoniae [pneumococcus] 3 No Information [facility], [address], [place], [place], [id number] , [place] tel: [phone] [facility] Dental examination 3 No Information [...] Of Treatment Date Type Action Status Goal Urinalysis. Due on 13 due Goal BMP fasting. 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 Doing well, no complaints. Functional Status Date Functional Assessmen t No Information Instructions Date Instruction Additional Infor mation No Information Assessments Type Assessment Date No Information Patient Care Teams Name Effective Dates (start - stop) Status Members No Information
--- OUTSIDE RECORDS SUMMARY | 2025-07-04 15:11 | XMS_ITS | Encounter Summary ---
Author Organization [facility] Address [address] [place] [address] Care Team Providers Care Bonding Supervisor Name Role Phone Donnell Frandy Winkler Primary Care Provider + Reason for Visit * Reason Onset Date Comments FACIAL CELLULITIS, PERIAPICAL ABSCESS 08/12/2022 LEFT RN # ON DR PERRY'S PAGER Encounter Details Date Type Department Care Team (Late st Contact Info) Description 08/12/2022 Telephone [facility] Admitting [address] [place] [address] [place] [id number] [address] FACIAL CELLULITIS, PERIAPICAL ABSCESS (LEFT RN # ON DR PERRY'S PAGER) Social History Tobacco Use Types Packs/Day Years Used Date Smoking Tobacco: Former Alcohol Use Standard Drinks/Week Comments Yes 0 (1 standard drink = 0.6 oz pur e alcohol) rare Sex and Gender Information Value Date Recorded Sex Assigned at Not on file Legal Sex Male 6:08 AM EMERGENCY MEDICAL TECHNICIAN Gender Identity Not on file Sexual Orientation [...] COVID-19 10/21/2022 10/21/2022 10/21/2022 11:5 2 AM EMERGENCY MEDICAL TECHNICIAN R/O COVID-19 09/13/2023 09/13/2023 09/13/2023 3:58 PM CDT R/O Respiratory 09/13/2023 09/13/2023 09/13/2023 1 0:14 PM CDT R/O COVID-19 07/14/2024 07/14/2024 07/14/2024 3:59 PM CDT documented as of this encounter Care Teams Bonding Supervisor Relationship Specialty Start Date End Date Frandy Jacobo DO [address] [place] [phone] PCP - General Family Practice 01/31/24 01/21/25 documented as of this encounter
--- OUTSIDE RECORDS SUMMARY | 2025-07-04 15:11 | XMS_ITS | Encounter Summary ---
Author Organization [facility] Address [address] [place] [address] Care Team Providers Care Bank Cashier Name Role Phone Unavailable Primary Care Provider Unavailabl e Reason for Visit * Reason Onset Date Comments MEDICATION REFILL 11/02/2023 Eye Problem 11/02/2023 Encounter Details Date Type Department Care Team (Late st Contact Info) Description 11/02/2023 Refill [facility] - Ophthalmology [address] [place] [phone] Grayson Wadsworth MD [address] [place] [address] [place] [address] MEDICATION REFILL; Eye Problem Social [...] Sex Assigned at Male 10/29/2022 9:20 AM SWITCHBOARD AND CONTROL ROOM OPERATOR Legal Sex Male 5:32 AM SWITCHBOARD AND CONTROL ROOM OPERATOR Gender Identity Male 10/29/2022 9:20 AM SWITCHBOARD AND CONTROL ROOM OPERATOR Sexual Orientation Not on file documented as of this encounter Miscellaneous Notes * Telephone Encounter - Darshana Cowan - 11/02/2023 11:44 AM CST This patient called and said he had the pink top drops and needed the other one. He said it is for his pressure.(?) CHBOARD AND CONTROL ROOM OPERATOR documented in this encounter Plan of Treatment Not on file documented as of this encounter Visit Diagnoses Diagnosis Panuveitis of right eye Panuveitis documented in this encounter
--- OUTSIDE RECORDS SUMMARY | 2025-07-04 15:11 | XMS_ITS | Clinical Summary ---
Author Organization [facility] Address [address] [place] [address] Phone Care Team Providers Care Bread Room Hand Name Role Phone Unavailable Primary Care Provider Unavailabl e Allergies Active Allergy Reactions Criticality Noted Date Comments Penicillins Nausea and Vomiting,Dizziness Low 08/07 Tramadol Headache Low 03/27/2023 Medications metFORMIN (GLUCOPHAGE) 500 mg tabletIndicatio ns:Type 2 diabetes mellitus with hyperglycemia, without long-term current use of insulin ([facility]) Take 2 Tablets (1,000 mg) by mouth [...] Encounters Date Type Department Care Team Description 05/13/2025 External Device Data ST[facility] ABSTRACTION Provider, Abstract 04/29/2025 External Device Data ST[facility] ABSTRACTION Provider, Abstract 04/29/2025 External Device Data ST[facility] ABSTRACTION Provider, Abstract [...] Used Date Smoking Tobacco: Former Cigarettes 1 3.4 S tarted: 01/26/2022 Cigars Tobacco Cessation:Counseling Given: Not Answered Alcohol Use Standard Drinks/Week Comments Not Currently 0 (1 standard drink = 0.6 oz pure alcohol) quit ETOH 1 yr ago. drank beer & anuradha mercado Sex and Gender Information Value Date Recorded Sex Assigned at Not on file Legal Sex Male 6:08 AM RESPIRATORY COORDINATOR Gender Identity Not on file Sexual Orientation [...] 11:31 AM CDT Height 180.3 cm (5' 11) 08/18/2024 11:31 AM CDT Body Mass Index 28.87 08/18/2024 11:31 AM CDT Plan of Treatment Health Maintenance Due Date Last Done Comments HPV VACCINES (1 - Male 3-dose series) 1997 DIABETES ANNUAL FOOT EXAM 2000 DIABETES MICROALBUMIN ANNUAL SCREEN 2000 LDL CHOLESTEROL ANNUAL 2000 DTAP/TDAP/TD VACCINES (1 - Tdap) 2001 HEPATITIS B VACCINES (1 of 3 - 19+ 3-dose series) 2001 DIABETES HBA1C Q 6 MONTHS 07/29/20242023, 09/13/2023, 10/21/2022 DIABETES ANNUAL RETINAL EXAM 02/14/2025, 08/09/2023, 04/20/2023 INFLUENZA VACCINE (#1) 2025 Procedures Procedure Name Priority Date/Time Associated Diagnosis Comments HEMOGLOBIN A1C Stat 01/27/2024 11:09 AM RESPIRATORY COORDINATOR from Last 3 Months or Most Recently Relevant to Health Maintenance Results * (ABNORMAL) HEMOGLOBIN A1C (01/27/2024 11:09 AM RESPIRATORY COORDINATOR) HEMOGLOBIN A1C 10.4(H) <=5.6 % 01/27/2024 11:53 AM RESPIRATORY COORDINATOR [facility] [place] EST. AVG GLUCOSE, A1C 252 mg/dL 01/27/2024 11:53 AM [facility] [place] Blood Collection / Unknown 01/27/2024 11:09 AM RESPIRATORY COORDINATOR 01/27/2024 11:34 AM RESPIRATORY COORDINATOR Narrative [facility] - 01/27/2024 11:53 AM RESPIRATORY COORDINATOR HGB A1C INTERPRETATION NORMAL: <5.7% PRE-DIABETES: 5.7 - 6.4% DIABETES: 6.5% OR GREATER us Grabiel Tamie DO CHEMISTRY ORDERABLES Final Resul t [facility] [place] CLIA # [id number] [facility] [address] [place] [phone] from Last 3 Months or Most Recently [...] file Type:RX [facility] Address: [facility] MEDICAID Advance Directives For more information, please contact: [phone] * Full Code (Latest Code Status on File) Date Activated Date Inactivated Comments 01/27/2024 2:32 PM 01/30/2024 2:19 PM * Full Code Date Activated Date Inactivated Comments 08/11/2022 4:26 PM 08/13/2022 9:06 PM
--- OUTSIDE RECORDS SUMMARY | 2025-07-04 15:11 | XMS_ITS | Encounter Summary ---
Author Organization [facility] Address [address] [place] [address] Care Team Providers Care Windows Administrator Name Role Phone Miladis Eubanks MD Primary Care Provider [phone] Encounter Details Date Type Department Care Team (Late st Contact Info) Description 10/29/2022 Ophth Exam [facility] [address] [place] [phone] Jocelyn Parker MD [address] [place] [phone] Social History Tobacco Use Types Packs/Day Years [...] Sex Assigned at Male 10/29/2022 9:20 AM IT INFRASTRUCTURE ENGINEER Legal Sex Male 5:32 AM IT INFRASTRUCTURE ENGINEER Gender Identity Male 10/29/2022 9:20 AM IT INFRASTRUCTURE ENGINEER Sexual Orientation Not on file documented as of this encounter Functional Status documented as of this encounter Plan of Treatment Not on file documented as of this encounter Visit Diagnoses Not on filedocumented in this encounter Care Teams Windows Administrator Relationship Specialty Start Date End Date Miladis Eubanks MD [address] [place] [facility] [place] [address] PCP - General 11/01/22 11/01/22 documented as of this encounter
--- OUTSIDE RECORDS SUMMARY | 2025-07-04 15:12 | XMS_ITS | Clinical Summary ---
Author Organization [facility] Address [address] [place] [address] Care Team Providers Care Water Safety Teacher Name Role Phone Unavailable Primary Care Provider Unavailabl e Source Comments [facility],non-owned Affiliates and Associated Physician Practices is amultiple site organization consisting of ambulatory clinics and hospital sitesin [place], [place], [place] and [place]. This disclosure is being madepursuant to the Care Everywhere program and may not contain all information available regarding this patient. Last updated 18.[facility] Personal Factory Allergies Active Allergy Reactions Criticality Noted Date [...] Sex Assigned at Male 10/29/2022 9:20 AM KILN HEAD HOUSE OPERATOR Legal Sex Male 5:32 AM KILN HEAD HOUSE OPERATOR Gender Identity Male 10/29/2022 9:20 AM KILN HEAD HOUSE OPERATOR Sexual Orientation Not on file Last Filed Vital Signs Vital Sign Reading Time Taken Comments Blood Pressure 140/96 10/29/2022 8:38 AM KILN HEAD HOUSE OPERATOR Pulse 78 10/29/2022 8:38 AM KILN HEAD HOUSE OPERATOR Temperature 36.2 C (97.1 F) 10/29/2022 8:38 AM KILN HEAD HOUSE OPERATOR Respiratory Rate 16 10/29/2022 8:38 AM KILN HEAD HOUSE OPERATOR Oxygen Saturation 97% 10/29/2022 8:38 AM KILN HEAD HOUSE OPERATOR Inhaled Oxygen Concentration - - Weight 94.3 kg (208 lb) 10/29/2022 8:38 AM KILN HEAD HOUSE OPERATOR Height 180.3 cm (5' 11) 10/29/2022 8:38 AM KILN HEAD HOUSE OPERATOR Body Mass Index 29.01 10/29/2022 8:38 AM KILN HEAD HOUSE OPERATOR Plan of Treatment Health Maintenance Due Date Last Done Comments HEPATITIS C SCREENING 03/08/2000 DTAP/TDAP/TD VACCINES (1 - Tdap) 2001 HEPATITIS B VACCINE (1 of 3 - 19+ 3-dose series) 2001 PNEUMOCOCCAL VACCINE (1 of 2 - PCV) 2001 HPV VACCINE (1 - 3-dose SCDM series) 2009 DIABETES-STATIN 2022 DIABETES-FOOT EXAM WITH MONOFILAMENT 11/29/2022 COVID-19 VACCINE ( - 2023- season) 2024 DIABETES-HGB A1C 07/29/2024 01/27/2024, , 10/21/2022 DEPRESSION SCREENING 11/27/2024 DIABETES - URINE PROTEIN SCREENING 11/27/2024 DIABETES-SERUM CREATININE 01/29/20252023, 01/30/2024, 01/30/2024, Additional history exists INFLUENZA VACCINE (#1) 2025 DIABETES RETINOPATHY SCREENING 02/14/2026 02/15/2024, 11/06/2023, [...] COMPREHENSIVE METABOLIC PANEL STAT 10/28/2022 7:00 PM KILN HEAD HOUSE OPERATOR HIV-1 HIV-2 ANTIGEN/ANTIBODY STAT 02/18/2019 10:30 PM CDT from Last 3 Months or Most Recently Relevant to Health Maintenance Results * (ABNORMAL) COMPREHENSIVE METABOLIC PANEL (10/28/2022 7:00 PM KILN HEAD HOUSE OPERATOR) Glucose 224(H) 70 - 105 mg/dL 10/28/2022 7:25 PM [facility] Sodium 138 136 - 145 mmol/L 10/28/2022 7:25 PM [facility] Potassium 3.2(L) 3.5 - 5.1 mmol/L 10/28/2022 7:25 PM [facility] Chloride 104 98 - 107 mmol/L 10/28/2022 7:25 PM [facility] CO2 22(L) 23 - 31 mmol/L 10/28/2022 7:25 PM [facility] Calcium 9.0 8.4 - 10.4 mg/dL 10/28/2022 7:25 PM [facility] Anion Gap 12 8 - 18 mmol/L 10/28/2022 7:25 PM [facility] BUN 14 8.9 - 20.6 mg/dL 10/28/2022 7:25 PM [facility] Creatinine 0.82 0.72 - 1.25 mg/dL 10/28/2022 7:25 PM [facility] Alkaline Phosphatase 106 40 - 150 U/L 10/28/2022 7:25 PM [facility] ALT 25 0 - 61 U/L 10/28/2022 7:25 PM [facility] AST 20 5 - 34 U/L 10/28/2022 7:25 PM [facility] Protein Total 7.3 6.4 - 8.3 gm/dL 10/28/2022 7:25 PM [facility] Albumin 4.0 3.5 - 5.2 gm/dL 10/28/2022 7:25 PM [facility] Bilirubin Total 0.6 0.2 - 1.2 mg/dL 10/28/2022 7:25 PM [facility] eGFR by CKD-EPI >90 >=90 mL/min/1.7 3 m2 10/28/2022 7:25 PM [facility] Blood BLOOD SPECIMEN / Unknown Venipuncture / Unknown 10/28/2022 7:00 PM KILN HEAD HOUSE OPERATOR 10/28/2022 7:05 PM [facility] Dami Enamorado VENEER PULLER-EMBROIDERY PATTERNMAKER LAB - CHEMISTRY ORDERABL ES Final Result [facility] [address] [address] * HIV-1 HIV-2 ANTIGEN/ANTIBODY (02/18/2019 10:30 PM CDT) HIV Antigen/Antibod y 1 & 2 Non-reacti ve Non-react nasra 02/18/2019 11:23 PM CDT [facility] Comment: Neither HIV-1 p24 Antigen nor HIV-1/HIV-2 Antibodies are detected. Blood BLOOD SPECIMEN / Unknown Venipuncture / Unknown 02/18/2019 10:30 PM CDT 02/18/2019 10:41 PM CDT us Kyle Mckay MD LAB - HEMATOLOGY ORDERABLES Henrietta gonzales Result [facility] [address] [place] [address], [facility] [phone] from Last 3 Months or Most Recently Relevant to Health Maintenance Insurance [facility]
[2025-07-04 15:18] VITALS: BP 135/94; PULSE 72; RESP 18; TEMP 36.8; O2SAT 100
--- NOTE | 2025-07-04 15:25 | PC.NURSE ---
joselito vision acuity 20/20
--- NOTE | 2025-07-04 15:35 | ED_ITS ---
HPI - Eye Problem General Chief complaint: Eye Problems Stated complaint: poison evangelina to R. eye Time Seen by Provider: 07/04/25 15:11 Source: patient and RN notes reviewed Mode of arrival: ambulatory Limitations: no limitations History of Present Illness HPI Narrative: 45-year-old male presents to the ER complaining of possible poison evangelina. Patient said he was cutting limbs on a tree 2 days ago and this when he believes he might have got poison evangelina. Patient reports having a pruritic rash to his arms and on his face. Patient said he reports increased watery drainage to his right eye denies any redness, pain, vision problems, or any other symptoms. Patient does have a history uveitis he was treated for a few years ago. Patient has been trying calamine lotion to help with symptoms. Related Data Allergies Allergy/AdvReac Type Severity Reaction Status Date / Time Penicillins Allergy Abdominal Verified 07/04/25 15:18 Pain tramadol Allergy GI upset Verified 07/04/25 15:18 Review of Systems Review of Systems: CONSTITUTIONAL: Denies fever, chills, or sweats. EYES: Denies visual changes, blurry vision, pain, redness,. Positive for watery discharge. ENT: Denies rhinorrhea, congestion, sore throat, or otalgia. CARDIOVASCULAR: Denies chest pain, palpitations, or edema. RESPIRATORY: Denies cough or dyspnea. GASTROINTESTINAL: Denies abdominal pain, nausea, vomiting, or diarrhea. GENITOURINARY: Denies dysuria or hematuria. SKIN: Positive for rash and itching. MUSCULOSKELETAL: Denies back pain, joint pain, or myalgia. NEUROLOGIC: Denies headache, numbness, or weakness. PSYCHIATRIC: Denies anxiety or depression. All other systems reviewed are negative, except as documented in HPI. PMFSH Comments At the time of my signature, I reviewed and agree with the nursing past medical, surgical, social, and family history. There is no relevant family history pertinent to the patient complaint. Exam Narrative: GENERAL: This is a well-nourished, well-developed adult, in no apparent distress. They are non ill-appearing, nontoxic appearing. HEAD: normocephalic, atraumatic. EYES: Sclera clear/white. Conjunctiva normal. Clear watery drainage present to right eye. Vision is grossly intact. Extraocular movements intact. Pupils PERRLA. Wood's lamp exam of right eye with fluorescein stain: No vitreous humor, no dendritic lesions, no corneal abrasion or laceration, no corneal ulceration, unremarkable. EARS: External ears normal, Hearing grossly intact. NOSE: External nose normal THROAT: Mucous membranes moist, NECK: Neck supple, CARDIOVASCULAR: Regular rate and rhythm RESPIRATORY: Normal respiratory SKIN: There is erythematous vesicular pruritic papular rash the patient's bilateral forearms and around his right orbit. No area of fluctuance, no induration, rashes nontender. NEURO: awake, alert, and oriented to person, place and time. There were no obvious focal neurologic abnormalities. EXTREMITIES: No joint tenderness, effusion, or edema noted. Course Course Emergency Course: Portions of this record may have been created with voice recognition software Vital Signs Vital signs: Vital Signs Temperature 98.2 F 07/04/25 15:18 Pulse Rate 72 07/04/25 15:18 Respiratory Rate 18 07/04/25 15:18 Blood Pressure 135/94 H 07/04/25 15:18 Pulse Oximetry 100 07/04/25 15:18 Oxygen Delivery Room Air 07/04/25 15:18 Temperature 98.2 F 07/04/25 15:18 Pulse Rate 72 07/04/25 15:18 Respiratory Rate 18 07/04/25 15:18 Blood Pressure 135/94 H 07/04/25 15:18 Pulse Oximetry 100 07/04/25 15:18 Oxygen Delivery Room Air 07/04/25 15:18 Reviewed MDM - Eye Problem MDM Narrative Medical decision making narrative: Normal visual acuity. Wood's lamp exam rhinitis unremarkable. Physical exam of eyes is unremarkable, no evidence of infection. Low suspicion for uveitis or conjunctivitis. Patient likely has contact dermatitis from poison evangelina given the redness and swelling around his right orbit. Will prescribe him a course of prednisone. Discussed physical exam findings. Advised supportive measures and signs/symptoms to go to the ER. Pt is appropriate for outpt treatment and f/u. Differential Diagnosis Differential diagnosis: Likely corneal abrasion, conjunctivitis and other (Contact dermatitis, poison evangelina, cellulitis) Critical Care Time Critical Care Time Critical Care Time: No Discharge Plan Discharge Clinical Impression: Poison evangelina Patient Disposition: Home Condition: Stable Instructions: Poison Evangelina (ED) Additional Instructions: Take the prednisone as directed. Take it in the morning and take it with food. You may use geyt-ofp-ptbysze Tecnu soap as directed on the bottle to help remove the oils from poison evangelina off your skin. You may use calamine lotion, camphor, hydrocortisone cream, Benadryl cream as needed for itchiness symptoms. You may also take Zyrtec or Claritin as needed for allergy or itchiness symp toms. Follow-up PCP in 3-5 days. If you develop any worsening redness, vision problems, eye pain, swelling, discharge, fevers, breathing problems, or any other concerns please go to the ER immediately. Patient Language: Japanese Prescriptions: New prednisone 50 mg tablet 50 mg PO DAILY 5 Days Qty: 5 0RF No Action methylprednisolone [Medrol (Lenin)] 4 mg tablets,dose pack 4 mg PO DAILY Qty: 21 0RF benzonatate 100 mg capsule 100 mg PO BID PRN (Reason: cough) Qty: 30 0RF metformin 500 mg tablet 500 mg PO BID 30 Days Qty: 60 0RF ondansetron 4 mg tablet,disintegrating 4 mg PO Q8H PRN (Reason: nausea and vomiting) Qty: 14 0RF Follow-up/Referrals: PHYSICIAN,RED HAT LINUX ADMINISTRATOR [Primary Care Provider] - Time of Disposition: 15:58
--- OUTSIDE RECORDS SUMMARY | 2025-07-04 16:08 | XMS_ITS | Encounter Summary ---
Author Organization [facility] Address [address] [place] [address] Care Team Providers Care Electrical Prospecting Operator Name Role Phone Donnell Frandy Winkler Primary Care Provider + Reason for Visit * Reason Onset Date Comments FACIAL CELLULITIS, PERIAPICAL ABSCESS 08/12/2022 LEFT RN # ON DR PERRY'S PAGER Encounter Details Date Type Department Care Team (Late st Contact Info) Description 08/12/2022 Telephone [facility] Admitting [address] [place] [address] [place] [address] [address] FACIAL CELLULITIS, PERIAPICAL ABSCESS (LEFT RN # ON DR PERRY'S PAGER) Social History Tobacco Use Types Packs/Day Years Used Date Smoking Tobacco: Former Alcohol Use Standard Drinks/Week Comments Yes 0 (1 standard drink = 0.6 oz pur e alcohol) rare Sex and Gender Information Value Date Recorded Sex Assigned at Not on file Legal Sex Male 6:08 AM ARTIFICIAL LOG MACHINE OPERATOR Gender Identity Not on file Sexual Orientation [...] COVID-19 10/21/2022 10/21/2022 10/21/2022 11:5 2 AM ARTIFICIAL LOG MACHINE OPERATOR R/O COVID-19 09/13/2023 09/13/2023 09/13/2023 3:58 PM CDT R/O Respiratory 09/13/2023 09/13/2023 09/13/2023 1 0:14 PM CDT R/O COVID-19 07/14/2024 07/14/2024 07/14/2024 3:59 PM CDT documented as of this encounter Care Teams Electrical Prospecting Operator Relationship Specialty Start Date End Date Frandy Jacobo DO [address] [place] [phone] PCP - General Family Practice 01/31/24 01/21/25 documented as of this encounter
--- OUTSIDE RECORDS SUMMARY | 2025-07-04 16:08 | XMS_ITS | Clinical Summary ---
Author Organization [facility] Address [address] [place] [address] Care Team Providers Care Taffy Puller Name Role Phone Unavailable Primary Care Provider Unavailabl e Source Comments [facility],non-owned Affiliates and Associated Physician Practices is amultiple site organization consisting of ambulatory clinics and hospital sitesin [place], [place], [place] and [place]. This disclosure is being madepursuant to the Care Everywhere program and may not contain all information available regarding this patient. Last updated 18.[facility] [employer] Allergies Active Allergy Reactions Criticality Noted Date [...] Sex Assigned at Male 10/29/2022 9:20 AM SENIOR SECURITY ENGINEER Legal Sex Male 5:32 AM SENIOR SECURITY ENGINEER Gender Identity Male 10/29/2022 9:20 AM SENIOR SECURITY ENGINEER Sexual Orientation Not on file Last Filed Vital Signs Vital Sign Reading Time Taken Comments Blood Pressure 140/96 10/29/2022 8:38 AM SENIOR SECURITY ENGINEER Pulse 78 10/29/2022 8:38 AM SENIOR SECURITY ENGINEER Temperature 36.2 C (97.1 F) 10/29/2022 8:38 AM SENIOR SECURITY ENGINEER Respiratory Rate 16 10/29/2022 8:38 AM SENIOR SECURITY ENGINEER Oxygen Saturation 97% 10/29/2022 8:38 AM SENIOR SECURITY ENGINEER Inhaled Oxygen Concentration - - Weight 94.3 kg (208 lb) 10/29/2022 8:38 AM SENIOR SECURITY ENGINEER Height 180.3 cm (5' 11) 10/29/2022 8:38 AM SENIOR SECURITY ENGINEER Body Mass Index 29.01 10/29/2022 8:38 AM SENIOR SECURITY ENGINEER Plan of Treatment Health Maintenance Due Date [...] COMPREHENSIVE METABOLIC PANEL STAT 10/28/2022 7:00 PM SENIOR SECURITY ENGINEER HIV-1 HIV-2 ANTIGEN/ANTIBODY STAT 02/18/2019 10:30 PM CDT from Last 3 Months or Most Recently Relevant to Health Maintenance Results * (ABNORMAL) COMPREHENSIVE METABOLIC PANEL (10/28/2022 7:00 PM SENIOR SECURITY ENGINEER) Glucose 224(H) 70 - 105 mg/dL 10/28/2022 7:25 PM [facility] Sodium 138 136 - 145 mmol/L 10/28/2022 7:25 PM [facility] Potassium 3.2(L) 3.5 - 5.1 mmol/L 10/28/2022 7:25 PM [facility] Chloride 104 98 - 107 mmol/L 10/28/2022 7:25 PM [facility] CO2 22(L) 23 - 31 mmol/L 10/28/2022 7:25 PM [facility] Calcium 9.0 8.4 - 10.4 mg/dL 10/28/2022 7:25 PM [facility] Anion Gap 12 8 - 18 mmol/L 10/28/2022 7:25 PM [facility] BUN 14 8.9 - 20.6 mg/dL 10/28/2022 7:25 PM [facility] Creatinine 0.82 0.72 - 1.25 mg/dL 10/28/2022 7:25 PM [facility] Alkaline Phosphatase 106 40 - 150 U/L 10/28/2022 7:25 PM [facility] ALT 25 0 - 61 U/L 10/28/2022 7:25 PM [facility] AST 20 5 - 34 U/L 10/28/2022 7:25 PM [facility] Protein Total 7.3 6.4 - 8.3 gm/dL 10/28/2022 7:25 PM [facility] Albumin 4.0 3.5 - 5.2 gm/dL 10/28/2022 7:25 PM [facility] Bilirubin Total 0.6 0.2 - 1.2 mg/dL 10/28/2022 7:25 PM [facility] eGFR by CKD-EPI >90 >=90 mL/min/1.7 3 m2 10/28/2022 7:25 PM [facility] Blood BLOOD SPECIMEN / Unknown Venipuncture / Unknown 10/28/2022 7:00 PM SENIOR SECURITY ENGINEER 10/28/2022 7:05 PM [facility] Dami Enamorado SECURITY INTERN-TUNGSTEN TENDER LAB - CHEMISTRY ORDERABL ES Final Result [facility] [address] [address] * HIV-1 HIV-2 ANTIGEN/ANTIBODY (02/18/2019 10:30 PM CDT) HIV Antigen/Antibod y 1 & 2 Non-reacti ve Non-react nasra 02/18/2019 11:23 PM CDT [facility] Comment: Neither HIV-1 p24 Antigen nor HIV-1/HIV-2 Antibodies are detected. Blood BLOOD SPECIMEN / Unknown Venipuncture / Unknown 02/18/2019 10:30 PM CDT 02/18/2019 10:41 PM CDT us Kyle Mckay MD LAB - HEMATOLOGY ORDERABLES Henrietta gonzales Result [facility] [address] [place] [address], [facility] [phone] from Last 3 Months or Most Recently Relevant to Health Maintenance Insurance [facility]
--- OUTSIDE RECORDS SUMMARY | 2025-07-04 16:08 | XMS_ITS | Encounter Summary ---
Author Organization [facility] Address [address] [facility] [place] [address] Care Team Providers Care Digital Advertising Specialist Name Role Phone Unavailable Primary Care Provider Unavailabl e Reason for Visit * Reason Onset Date Comments MEDICATION REFILL 11/02/2023 Eye Problem 11/02/2023 Encounter Details Date Type Department Care Team (Late st Contact Info) Description 11/02/2023 Refill [facility] - Ophthalmology [address] [place] [phone] Grayson Wadsworth MD [address] [place] [address] [place] [address] MEDICATION REFILL; Eye Problem Social [...] Sex Assigned at Male 10/29/2022 9:20 AM TEXTILE CONVERTER Legal Sex Male 5:32 AM TEXTILE CONVERTER Gender Identity Male 10/29/2022 9:20 AM TEXTILE CONVERTER Sexual Orientation Not on file documented as of this encounter Miscellaneous Notes * Telephone Encounter - Darshana Cowan - 11/02/2023 11:44 AM CST This patient called and said he had the pink top drops and needed the other one. He said it is for his pressure.(?) ILE CONVERTER documented in this encounter Plan of Treatment Not on file documented as of this encounter Visit Diagnoses Diagnosis Panuveitis of right eye Panuveitis documented in this encounter
--- OUTSIDE RECORDS SUMMARY | 2025-07-04 16:08 | XMS_ITS | Encounter Summary ---
Author Organization [facility] Address [address] [place] [address] Care Team Providers Care Coupon Collection Clerk Name Role Phone Miladis Eubanks MD Primary Care Provider [phone] Encounter Details Date Type Department Care Team (Late st Contact Info) Description 10/29/2022 Ophth Exam [facility] [address] [place] [phone] Jocelyn Parker MD [address] [place] [phone] Social History Tobacco Use Types Packs/Day Years [...] Sex Assigned at Male 10/29/2022 9:20 AM ROTO GRAVURE PRESS OPERATOR Legal Sex Male 5:32 AM ROTO GRAVURE PRESS OPERATOR Gender Identity Male 10/29/2022 9:20 AM ROTO GRAVURE PRESS OPERATOR Sexual Orientation Not on file documented as of this encounter Functional Status documented as of this encounter Plan of Treatment Not on file documented as of this encounter Visit Diagnoses Not on filedocumented in this encounter Care Teams Coupon Collection Clerk Relationship Specialty Start Date End Date Miladis Eubanks MD [address] [place] [place] [address] PCP - General 11/01/22 11/01/22 documented as of this encounter
--- OUTSIDE RECORDS SUMMARY | 2025-07-04 16:08 | XMS_ITS | Clinical Summary ---
Author Organization [facility] Address [address] [place] [address] Phone Care Team Providers Care Associate Professor Of Philosophy Name Role Phone Unavailable Primary Care Provider Unavailabl e Allergies Active Allergy Reactions Criticality Noted Date Comments Penicillins Nausea and Vomiting,Dizziness Low 08/07 Tramadol Headache Low 03/27/2023 Medications metFORMIN (GLUCOPHAGE) 500 mg tabletIndicatio ns:Type 2 diabetes mellitus with hyperglycemia, without long-term current use of insulin ([facility]) Take 2 Tablets (1,000 mg) [...] on file Legal Sex Male 6:08 AM PRODUCER ARBORIST MANAGER Gender Identity Not on file Sexual Orientation [...] Comments HEMOGLOBIN A1C Stat 01/27/2024 11:09 AM PRODUCER ARBORIST MANAGER from Last 3 Months or Most Recently Relevant to Health Maintenance Results * (ABNORMAL) HEMOGLOBIN A1C (01/27/2024 11:09 AM PRODUCER ARBORIST MANAGER) HEMOGLOBIN A1C 10.4(H) <=5.6 % 01/27/2024 11:53 AM PRODUCER ARBORIST MANAGER [facility] EST. AVG GLUCOSE, A1C 252 mg/dL 01/27/2024 11:53 AM [facility] [place] Blood Collection / Unknown 01/27/2024 11:09 AM PRODUCER ARBORIST MANAGER 01/27/2024 11:34 AM PRODUCER ARBORIST MANAGER Narrative [facility] - 01/27/2024 11:53 AM PRODUCER ARBORIST MANAGER HGB A1C INTERPRETATION NORMAL: <5.7% PRE-DIABETES: 5.7 - 6.4% DIABETES: 6.5% OR GREATER us Grabiel Tamie DO CHEMISTRY ORDERABLES Final Resul t [facility] [place] CLIA # [id number] [facility] [address] [place] [id number] from Last 3 Months or Most Recently [...] Type:RX [facility] Address: [address] ELISE[address]AL[address] [facility] MEDICAID Advance Directives For more information, please contact: [phone] * Full Code (Latest Code Status on File) Date Activated Date Inactivated Comments 01/27/2024 2:32 PM 01/30/2024 2:19 PM * Full Code Date Activated Date Inactivated Comments 08/11/2022 4:26 PM 08/13/2022 9:06 PM
--- OUTSIDE RECORDS SUMMARY | 2025-07-04 16:08 | XMS_ITS | Continuity of Care Document ---
Author Organization [facility] Address [address] [place] [address] Phone Care Team Providers Care Shearer Printed Circuit Boards Name Role Phone Raysa Graham MD Unavailable [...] Encounter [facility], [address], [place], [place], [address] [place] [address] , tel: [phone] [facility] No Information Santos Tabares. [address] [place] [address], [address] [place] [address], . tel:[phone] Referring Provider: Raysa Graham, [address], [place], [address] . tel:[phone] OFFICE/OUTPA TIENT VISIT, EST [facility], [address], [place], [place], [id number] , tel:[phone] Urgent Care hepA (chief complaint) Encounter for immunization Lambert Torres. [address], [place], [place], [id number], . tel:[phone] Referring Provider: Brian Verdin, [address], [place], [address] . tel:[phone] [facility], [address], [place], [place], [id number] , [place] tel: [phone] [facility] No Information 3 No Information OFFICE/OUTPA TIENT VISIT, NEW [facility], [address], [place], [place], [id number] , [place] tel: [phone] [facility] [place] diabetes (chief complaint) GERD (chief complaint) back pain (chief complaint) anxiety (chief complaint) AnxietyDM (diabetes mellitus)Back painGERD (gastroesophageal reflux disease)Need for prophylactic vaccination and inoculation against viralhepatitisNeed for prophylactic vaccination and inoculation against Streptococcus pneumoniae [pneumococcus] 3 No Information [facility], [address], [place], [place], [id number] , [place] tel: [phone] [facility] Dental examination 3 No Information Family History Family Member Type Diagnosis Age At Onset No Information Immunizations Vaccine Date Status Comments Hep A (adult) administered Source: New Im munization Record Pneumo (2 yrs or older)(PPV) administered Source: New Immunization Record Hep B (adult, 2 dose) administered Source : New Immunization Record Payers Payer name Insurance type Covered libertarian ID Authoriza tion(s) No Information Social History [...] 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 Functional Status Date Functional Assessmen t No Information Instructions Date Instruction Additional Infor mation No Information Assessments Type Assessment Date No Information Patient Care Teams Name Effective Dates (start - stop) Status Members No Information
== END 2025-07-04 16:12 | disposition home or self-care (01) ==
DX: L23.7 Allergic contact dermatitis due to plants, except food (principal)
CPT/HCPCS: 99283; A9270